=== PATIENT | male | born 1970 | race Two or more races ===

== ENCOUNTER 2018-10-25 06:57 | Day surgery (SDC) | payer OTHER ==
[~2018-10-25] VITALS: Ht 180.3 cm; Wt 113.8 kg
[~2018-10-25 06:57] MED LIST: AMLO10 PO; Anti-Diarrhea2 MG PO; DOCSEN PO; HYDACE5 PO; LOSARTAN POTAS100 MG PO; METO50 PO; METO50ER PO; METR500 PO; MICROZIDE12.5 M1 PO; OLME20 PO; OMEP20ER; OMEPRAZOLE MAGN20 MG PO; ONDA8 PO; OXYC5 PO; Omeprazole20 M1 PO; Roxicodone5 MG PO
--- NOTE | 2018-10-25 07:49 | NUR ---
Ambulatory in Day Surgery Surgical site prepped with 2% Chlorhexidine cloth wipe. History, Chart, Medications and Allergies reviewed before start of procedure.Lungs clear T/O to Auscultation. Patient confirms NPO status and agrees with scheduled surgery. Patient States Post-Procedure ride home has been arranged.
--- NOTE | 2018-10-25 09:25 | NUR ---
10/25/18 0925 Papst,Amyank D HERNIA SAC TISSUE NOT SENT PER .
--- NOTE | 2018-10-25 11:07 | NUR ---
FROM PACU TO STEP WITH THIS RN. VSS RATES PAIN AT 9 WHEN HAVING A SPASM AND A 6 WHEN NOT
--- NOTE | 2018-10-25 12:38 | NUR ---
Discharge instructions reviewed with patient. Patient verbalizes understanding. Copy given to patient to take home. Patient States Post-Procedure ride home has been arranged. Discharged via wheelchair to private car for ride home. PATIENT ENCOURAGED TO TAKE TIME AND ONLY GET DRESSED TO GO HOME IF FEELING READY. HAVE GIVEN ALL PAIN RXS AVAILABLE AT THIS TIME FOR PATIENT. PATIENT GETTING DRESSED AND DISCHARGED AT THIS TIME
== END 2018-10-25 22:45 | disposition home or self-care (01) ==
LOC: ORSCMMR 06:57 → ORD 08:30 → ORSCMMR 08:30
PROVIDERS: Surgery
PROC: 0WUF0JZ Supplement Abdominal Wall with Synthetic Substitute, Open Approach (ICD-10-PCS; principal; 2018-10-25 08:30)
DX: K43.2 Incisional hernia without obstruction or gangrene (principal); I10 Essential (primary) hypertension; K21.9 Gastro-esophageal reflux disease without esophagitis; Z79.899 Other long term (current) drug therapy; Z87.891 Personal history of nicotine dependence
CPT/HCPCS: C1713; C1781; J0330; J0690; J1100; J2250; J2405; J2710; J3010; J7120

== ENCOUNTER 2018-10-27 17:13 | Observation (INO) | payer OTHER ==
[~2018-10-27] VITALS: Ht 180.3 cm; Wt 113.4 kg
[2018-10-27] MEDS ORDERED: OXYC10TA19 PO (17:34)
[2018-10-27] MEDS ORDERED: Aspirin EC81 MG PO (17:34)
[2018-10-27 17:59] LABS: BASOPHILS ABSOLUTE AUTO 0.04 K/mm3 (0.00-0.23); BASOPHILS PERCENT AUTO 0 % (0-2); EOSINOPHILS ABSOLUTE AUTO 0.09 K/mm3 (0.00-0.68); EOSINOPHILS PERCENT AUTO 1 % (0-6); Hematocrit 46.5 % (37.0-53.0); Hemoglobin 15.2 g/dL (13.5-17.5); IMMATURE GRAN ABSOLUTE AUTO 0.05 K/mm3 (0.00-0.10); IMMATURE GRAN PERCENT AUTO 1 % (0-1); LYMPHOCYTES ABSOLUTE AUTO 1.29 K/mm3 (0.84-5.20); LYMPHOCYTES PERCENT AUTO 12 % (21-46); MONOCYTES ABSOLUTE AUTO 0.76 K/mm3 (0.16-1.47); MONOCYTES PERCENT AUTO 7 % (4-13); Mean Corpuscular HGB 27.9 pg (26.0-34.0); Mean Corpuscular HGB Conc 32.7 g/dL (31.5-36.5); Mean Corpuscular Volume 85 fL (80-100); Mean Platelet Volume 10.8 fL (9.1-12.4); NEUTROPHILS ABSOLUTE AUTO 8.88 K/mm3 (1.96-9.15); NEUTROPHILS PERCENT AUTO 80 % (41-73); Platelet Count 285 K/mm3 (150-400); RDW Coefficient Variation 13.5 % (11.7-14.2); RDW Standard Deviation 41.8 fL (35.1-46.3); Red Blood Cell Count 5.45 M/mm3 (4.30-5.90); White Blood Cell Count 11.11 K/mm3 (4.00-11.30)
[2018-10-27 18:31] LABS: Alanine Aminotransfer (ALT/SGP 58 U/L (12-78); Albumin, Blood 4.1 g/dL (3.4-5.0); Alk Phos 103 U/L (50-136); Anion Gap 9 mmol/L (6-16); Aspartate Aminotrans (AST/SGOT 31 U/L (12-37); Bilirubin, Total 1.3 mg/dL (0.1-1.0); Blood Urea Nitrogen 20 mg/dL (8-24); Bun/Creatinine Ratio 21.9 (12.0-20.0); CO2, Blood 28 mmol/L (21-32); Calcium, Blood 10.1 mg/dL (8.5-10.1); Chloride, Blood 100 mmol/L (98-108); Creatinine, Blood 0.91 mg/dL (0.60-1.20); Globulin, Blood 4.2 g/dL (2.2-4.0); Glomerular Filtration Rate >60 (60-); Glucose, Blood 141 mg/dL (70-99); Potassium, Blood 3.7 mmol/L (3.5-5.5); Sodium, Blood 137 mmol/L (136-145); Total Protein, Blood 8.3 g/dL (6.4-8.2)
--- NOTE | 2018-10-27 22:10 | NUR ---
PT TRANSFERRED TO ROOM VIA STRETCHER, TRANSFERRED HIMSELF TO BED, A/0 X 4, PLEASANT/COOPERATIVE, FAMILY IN ROOM, VSS
--- NOTE | 2018-10-28 07:57 | NUR ---
PT HAD AN EPISODE OF VOMITTING THIS MORNING AT APPROX 0630 WITH A TOTAL EMESIS OUTPUT OF 900. APPEARED TO BE BILE; BROWN IN COLOR. WHILE VOMITTING, PT REPORTED FEELING DRG LEAK OUT OF ABD INCISION. UPON ASSESSMENT, GAUZE COVERING INCISION WAS SOAKED. SOME DRG NOTED ON ABD BINDER, FLOOR AND PANTS. DRG APPEARED TO BE SEROSANGUINOUS. PT REPORTS NOT FEELING NAUSEAS ANYMORE. WILL CONSIDER INSERTING NG TUBE.
--- NOTE | 2018-10-28 11:36 | NUR ---
ROUNDING: DR LILLY IN TO SEE PATIENT. PT HAD SMALL UNFORMED BM. OK TO START CLEAR LIQUIDS. ADVISED TO TAKE IN LIQUIDS SLOWLY. PT DENIES PAIN OR NAUSEA AT THIS TIME. WILL MONITOR DIET TOLERANCE.
--- NOTE | 2018-10-28 12:55 | NUR ---
PT HAD SMALL LIQUID BM. PT DENIES PAIN OR BLEEDING WITH BM. SITTING IN BED, FAMILY AT BEDSIDE.
--- NOTE | 2018-10-28 16:23 | NUR ---
DISCHARGE: DC TO HOME AT THIS TIME. PAIN WELL CONTROLLED WITH PO PAIN MEDS. PT HAS HAD 3 SMALL BM'S TODAY. TOLERATING ACTIVITY. IV DC'D WNL. VERBAL UNDERSTANDING OF INSTRUCTIONS AND FOLLOW UP. PT LEFT AMBULATORY TO CAR WITH BELONGINGS.
== END 2018-10-28 16:23 | disposition home or self-care (01) ==
LOC: ER 17:13 → SURS 17:14
PROVIDERS: Physician Assistant; ADMIT Surgery
DX: K56.7 Ileus, unspecified (principal); R11.2 Nausea with vomiting, unspecified; Z79.82 Long term (current) use of aspirin; Z79.899 Other long term (current) drug therapy; Z87.891 Personal history of nicotine dependence; Z98.890 Other specified postprocedural states
CPT/HCPCS: 36415; 74176; 80053; 85025; 96361; 96374; 96375; 96376; 99285-25; G0378; J1170; J2405; J7120

== ENCOUNTER 2019-01-07 14:21 | Day surgery (SDC) | payer OTHER ==
[~2019-01-07 14:21] MED LIST changes: +Aspirin EC81 MG PO; +OXYC10TA19 PO
== END 2019-01-07 14:55 | disposition home or self-care (01) ==
LOC: ATC 14:21
DX: C18.2 Malignant neoplasm of ascending colon (principal); R51 Headache; I10 Essential (primary) hypertension; Z79.899 Other long term (current) drug therapy; Z79.82 Long term (current) use of aspirin
CPT/HCPCS: J1642

== ENCOUNTER 2019-01-21 00:08 | Day surgery (SDC) | payer OTHER | END 2019-01-21 16:12 | disposition home or self-care (01) | LOC: ATC 00:08 | DX: C18.2 Malignant neoplasm of ascending colon (principal); I10 Essential (primary) hypertension | CPT/HCPCS: J1642 ==

== ENCOUNTER 2019-03-15 09:25 | Day surgery (SDC) | payer OTHER | END 2019-03-15 13:50 | disposition home or self-care (01) | LOC: ATC 09:25 | DX: C18.2 Malignant neoplasm of ascending colon (principal); Z79.899 Other long term (current) drug therapy; Z79.82 Long term (current) use of aspirin; Z87.891 Personal history of nicotine dependence | CPT/HCPCS: 96523; J1642 ==

== ENCOUNTER 2019-04-06 00:02 | Day surgery (SDC) | payer OTHER | END 2019-04-06 10:31 | disposition home or self-care (01) | LOC: ATC 00:02 | DX: Z45.1 Encounter for adjustment and management of infusion pump (principal); C18.2 Malignant neoplasm of ascending colon; I10 Essential (primary) hypertension; G62.9 Polyneuropathy, unspecified; G89.3 Neoplasm related pain (acute) (chronic); Q23.1 Congenital insufficiency of aortic valve; Z79.899 Other long term (current) drug therapy; Z79.82 Long term (current) use of aspirin; Z79.891 Long term (current) use of opiate analgesic; Z90.49 Acquired absence of other specified parts of digestive tract; Z87.891 Personal history of nicotine dependence | CPT/HCPCS: 96523; J1642 ==

== ENCOUNTER 2019-05-03 00:10 | Day surgery (SDC) | payer OTHER | END 2019-05-03 13:53 | disposition home or self-care (01) | LOC: ATC 00:10 | DX: C18.2 Malignant neoplasm of ascending colon (principal); R79.89 Other specified abnormal findings of blood chemistry; K21.9 Gastro-esophageal reflux disease without esophagitis | CPT/HCPCS: 96523; J1642 ==

== ENCOUNTER 2019-06-09 00:19 | Day surgery (SDC) | payer OTHER | END 2019-06-09 13:53 | disposition home or self-care (01) | LOC: ATC 00:19 | DX: C18.2 Malignant neoplasm of ascending colon (principal); I10 Essential (primary) hypertension; Z87.891 Personal history of nicotine dependence | CPT/HCPCS: 96523; J1642 ==

== ENCOUNTER → 2019-07-12 | Outpatient (CLI) | payer OTHER | END | disposition home or self-care (01) | LOC: LAB SHORT 08:00 → LAB SRC 08:00 → LAB SHORT 07-13 14:05 | DX: C18.9 Malignant neoplasm of colon, unspecified (principal) | CPT/HCPCS: 87493 ==

== ENCOUNTER 2019-07-29 19:16 | Emergency (ER) | payer OTHER ==
[~2019-07-29] VITALS: Ht 180.3 cm; Wt 114.3 kg
[2019-07-29 19:57] LABS: BASOPHILS ABSOLUTE AUTO 0.03 K/mm3 (0.00-0.23); BASOPHILS PERCENT AUTO 1 % (0-2); EOSINOPHILS ABSOLUTE AUTO 0.11 K/mm3 (0.00-0.68); EOSINOPHILS PERCENT AUTO 3 % (0-6); Hematocrit 43.2 % (37.0-53.0); Hemoglobin 13.6 g/dL (13.5-17.5); IMMATURE GRAN ABSOLUTE AUTO 0.01 K/mm3 (0.00-0.10); IMMATURE GRAN PERCENT AUTO 0 % (0-1); LYMPHOCYTES ABSOLUTE AUTO 1.99 K/mm3 (0.84-5.20); LYMPHOCYTES PERCENT AUTO 46 % (21-46); MONOCYTES PERCENT AUTO 7 % (4-13); Mean Corpuscular HGB 28.2 pg (26.0-34.0); Mean Corpuscular HGB Conc 31.5 g/dL (31.5-36.5); Mean Corpuscular Volume 90 fL (80-100); NEUTROPHILS ABSOLUTE AUTO 1.86 K/mm3 (1.96-9.15); NEUTROPHILS PERCENT AUTO 43 % (41-73); Platelet Count 200 K/mm3 (150-400); RDW Coefficient Variation 15.9 % (11.7-14.2); RDW Standard Deviation 51.2 fL (35.1-46.3); Red Blood Cell Count 4.82 M/mm3 (4.30-5.90)
[2019-07-29 20:17] LABS: Alanine Aminotransfer (ALT/SGP 55 U/L (12-78); Albumin, Blood 3.9 g/dL (3.4-5.0); Albumin/Globulin Ratio 1.1 (0.8-1.8); Alk Phos 112 U/L (50-136); Anion Gap 6 mmol/L (6-16); Aspartate Aminotrans (AST/SGOT 31 U/L (12-37); Bilirubin, Total 0.2 mg/dL (0.1-1.0); Blood Urea Nitrogen 17 mg/dL (8-24); Bun/Creatinine Ratio 17.8 (12.0-20.0); CO2, Blood 23 mmol/L (21-32); Calcium, Blood 9.5 mg/dL (8.5-10.1); Chloride, Blood 111 mmol/L (98-108); Creatinine, Blood 0.96 mg/dL (0.60-1.20); Globulin, Blood 3.5 g/dL (2.2-4.0); Glomerular Filtration Rate >60 (60-); Glucose, Blood 121 mg/dL (70-99); Potassium, Blood 3.7 mmol/L (3.5-5.5); Sodium, Blood 140 mmol/L (136-145); Total Protein, Blood 7.4 g/dL (6.4-8.2); Troponin I <0.015 ng/mL (0.000-0.040)
== END 2019-07-29 22:41 | disposition home or self-care (01) ==
LOC: ER 19:16
PROVIDERS: Emergency Medicine
DX: R07.89 Other chest pain (principal); F17.210 Nicotine dependence, cigarettes, uncomplicated; Z85.038 Personal history of other malignant neoplasm of large intestine; Z79.899 Other long term (current) drug therapy; Z79.82 Long term (current) use of aspirin
CPT/HCPCS: 36415; 71046; 80053; 84484; 85025; 93005; 93010; 99285-25

== ENCOUNTER → 2019-10-05 | Outpatient (CLI) | payer OTHER | END | disposition home or self-care (01) | LOC: LAB 11:50 → LAB SHORT 11:50 | DX: C18.9 Malignant neoplasm of colon, unspecified (principal) | CPT/HCPCS: 87493 ==

== ENCOUNTER 2019-10-12 13:22 | Emergency (ER) | payer OTHER ==
[~2019-10-12] VITALS: Ht 180.3 cm; Wt 113.4 kg
[2019-10-12 14:07] LABS: BASOPHILS ABSOLUTE AUTO 0.03 K/mm3 (0.00-0.23); BASOPHILS PERCENT AUTO 1 % (0-2); EOSINOPHILS ABSOLUTE AUTO 0.13 K/mm3 (0.00-0.68); EOSINOPHILS PERCENT AUTO 4 % (0-6); Hematocrit 42.8 % (37.0-53.0); Hemoglobin 13.7 g/dL (13.5-17.5); IMMATURE GRAN ABSOLUTE AUTO 0.01 K/mm3 (0.00-0.10); IMMATURE GRAN PERCENT AUTO 0 % (0-1); LYMPHOCYTES ABSOLUTE AUTO 1.46 K/mm3 (0.84-5.20); LYMPHOCYTES PERCENT AUTO 44 % (21-46); MONOCYTES ABSOLUTE AUTO 0.25 K/mm3 (0.16-1.47); MONOCYTES PERCENT AUTO 8 % (4-13); Mean Corpuscular HGB 29.2 pg (26.0-34.0); Mean Corpuscular Volume 91 fL (80-100); Mean Platelet Volume 10.6 fL (9.1-12.4); NEUTROPHILS ABSOLUTE AUTO 1.46 K/mm3 (1.96-9.15); NEUTROPHILS PERCENT AUTO 44 % (41-73); Platelet Count 183 K/mm3 (150-400); RDW Coefficient Variation 16.3 % (11.7-14.2); RDW Standard Deviation 54.9 fL (35.1-46.3); Red Blood Cell Count 4.69 M/mm3 (4.30-5.90); White Blood Cell Count 3.34 K/mm3 (4.00-11.30)
[2019-10-12 14:35] LABS: Alanine Aminotransfer (ALT/SGP 68 U/L (12-78); Albumin, Blood 3.6 g/dL (3.4-5.0); Alk Phos 83 U/L (50-136); Anion Gap 5 mmol/L (6-16); Aspartate Aminotrans (AST/SGOT 42 U/L (12-37); Bilirubin, Total 0.2 mg/dL (0.1-1.0); Blood Urea Nitrogen 10 mg/dL (8-24); Bun/Creatinine Ratio 10.7 (12.0-20.0); CO2, Blood 24 mmol/L (21-32); Calcium, Blood 9.7 mg/dL (8.5-10.1); Chloride, Blood 113 mmol/L (98-108); Creatinine, Blood 0.94 mg/dL (0.60-1.20); Globulin, Blood 3.6 g/dL (2.2-4.0); Glomerular Filtration Rate >60 (60-); Glucose, Blood 146 mg/dL (70-99); Potassium, Blood 3.9 mmol/L (3.5-5.5); Sodium, Blood 142 mmol/L (136-145); Total Protein, Blood 7.2 g/dL (6.4-8.2)
== END 2019-10-12 15:43 | disposition home or self-care (01) ==
LOC: ER 13:22
PROVIDERS: Emergency Medicine
DX: R55 Syncope and collapse (principal); R06.00 Dyspnea, unspecified; F17.210 Nicotine dependence, cigarettes, uncomplicated
CPT/HCPCS: 36415; 71045; 80053; 83880; 84484; 85025; 93005; 93010; 99284-25

== ENCOUNTER 2021-09-03 05:47 | Day surgery (SDC) | payer OTHER ==
[~2021-09-03] VITALS: Ht 180.3 cm; Wt 113.7 kg
[~2021-09-03 05:47] MED LIST changes: +CATAPRES0.1 MG PO; +COREG12.5 MG PO
--- NOTE | 2021-09-03 07:16 | NUR ---
Ambulatory in Day Surgery. History, Chart, Medications and Allergies reviewed before start of procedure. Lungs clear T/O to Auscultation. Patient confirms NPO status and agrees with scheduled surgery. Pre-Op teaching done. Pt verbalizes understanding. Patient States Post-Procedure ride home has been arranged.
--- NOTE | 2021-09-03 09:04 | NUR ---
RECIEVED REPORT FROM HEATHER DORMAN RN. PT ALERT AND ORIENTED UPON ARRIVAL TO STEPDOWN, REQUESTING PO FLUIDS AND FOOD. ABLE TO REPOSITION SELF IN BED. TWO INCISION SITES COVERED WITH GUAZE AND WINDOW, NO REDNESS, SWELLING, OR DRAINAGE NOTED ON EITHER SITES. PATIENT REPORTS A 4/10 ACHING PAIN AT INCISION SITE.
--- NOTE | 2021-09-03 09:27 | NUR ---
PT TOLERATED PO FLUID AND FOOD, IS REQUESTING TO GO HOME. SISTER AT BEDSIDE VISITING AND PREPARING TO GO GET TRANSPORTATION HOME.
--- NOTE | 2021-09-03 09:37 | NUR ---
Patient up to Ambulate independently. Gait steady. Discharge instructions reviewed with patient. Patient verbalizes understanding. Copy given to patient to take home. Dressing to procedure site clean, dry, intact with no visible drainage, swelling, erythema or bruising noted. Patient States Post-Procedure ride home has been arranged. Discharged via wheelchair to private car for ride home. ALL BELONGINGS THAT THE PATIENT BROUGHT WITH THEM WERE RETURNED TO THEM UPON DISCHARGE.
== END 2021-09-03 23:06 | disposition home or self-care (01) ==
LOC: ORSCMMR 05:47 → ORD 07:30 → ORSCMMR 07:30
PROVIDERS: Surgery
PROC: 05HM33Z Insertion of Infusion Device into Right Internal Jugular Vein, Percutaneous Approach (ICD-10-PCS; principal; 2021-09-03 07:30)
PROC: B543ZZA Ultrasonography of Right Jugular Veins, Guidance (ICD-10-PCS; principal; 2021-09-03 07:30)
DX: C18.3 Malignant neoplasm of hepatic flexure (principal); C78.7 Secondary malignant neoplasm of liver and intrahepatic bile duct; C77.9 Secondary and unspecified malignant neoplasm of lymph node, unspecified; I10 Essential (primary) hypertension; G47.33 Obstructive sleep apnea (adult) (pediatric); Z87.891 Personal history of nicotine dependence; K21.9 Gastro-esophageal reflux disease without esophagitis; F41.9 Anxiety disorder, unspecified; E66.9 Obesity, unspecified; Z68.35 Body mass index [BMI] 35.0-35.9, adult; Z79.899 Other long term (current) drug therapy
CPT/HCPCS: 77001; A9270; C1788; J0690; J1100; J1642; J2250; J2405; J2704; J3010; J7120

== ENCOUNTER → 2021-09-24 | Outpatient (CLI) | payer OTHER ==
[2021-09-24 20:21] LABS: C DIFFICILE DNA NEGATIVE (Negative)
== END | disposition home or self-care (01) ==
LOC: LAB SHORT 08:30 → LAB FUT 09-22 11:15
PROVIDERS: Registered Nurse Oncology
DX: C18.9 Malignant neoplasm of colon, unspecified (principal); A04.72 Enterocolitis due to Clostridium difficile, not specified as recurrent
CPT/HCPCS: 87493

== ENCOUNTER 2021-10-05 19:00 | Emergency (ER) | payer OTHER ==
[~2021-10-05] VITALS: Ht 180.3 cm; Wt 108.9 kg
[2021-10-05 19:33] LABS: Hematocrit 47.7 % (37.0-53.0); Hemoglobin 16.1 g/dL (13.5-17.5); Mean Corpuscular HGB 28.5 pg (26.0-34.0); Mean Corpuscular HGB Conc 33.8 g/dL (31.5-36.5); Mean Corpuscular Volume 85 fL (80-100); Mean Platelet Volume 10.2 fL (9.1-12.4); Platelet Count 400 K/mm3 (150-400); RDW Coefficient Variation 13.9 % (11.7-14.2); RDW Standard Deviation 42.5 fL (35.1-46.3); Red Blood Cell Count 5.64 M/mm3 (4.30-5.90); White Blood Cell Count 5.39 K/mm3 (4.00-11.30)
[2021-10-05 19:47] LABS: Source, Urine Clean Catch
[2021-10-05 19:51] LABS: Alanine Aminotransfer (ALT/SGP 37 U/L (12-78); Albumin, Blood 3.6 g/dL (3.4-5.0); Albumin/Globulin Ratio 0.8 (0.8-1.8); Alk Phos 169 U/L (50-136); Anion Gap 8 mmol/L (6-16); Aspartate Aminotrans (AST/SGOT 21 U/L (12-37); Bilirubin, Total 0.7 mg/dL (0.1-1.0); Blood Urea Nitrogen 21 mg/dL (8-24); Bun/Creatinine Ratio 19.6 (12.0-20.0); CO2, Blood 22 mmol/L (21-32); Calcium, Blood 10.5 mg/dL (8.5-10.1); Chloride, Blood 100 mmol/L (98-108); Creatinine, Blood 1.07 mg/dL (0.60-1.20); Globulin, Blood 4.5 g/dL (2.2-4.0); Glomerular Filtration Rate >60 (60-); Glucose, Blood 134 mg/dL (70-99); Potassium, Blood 4.1 mmol/L (3.5-5.5); Sodium, Blood 130 mmol/L (136-145); Total Protein, Blood 8.1 g/dL (6.4-8.2)
[2021-10-05 19:53] LABS: Appearance, Urine Hazy (Clear); Blood, Urine 2+ (Neg); Color, Urine Yellow (P-Yellow); Glucose Qualitative, Urine Neg (Neg); Ketones, Urine 1+ (Neg); Leukocyte Esterase, Urine Neg (Neg); Nitrite, Urine Neg (Neg); Protein, Urine 2+ (Neg); Urobilinogen, Urine NORM (Normal)
[2021-10-05 20:04] LABS: BAND PERCENT MAN 27 % (0-8); BASOPHILS PERCENT MAN 0 % (0-2); EOSINOPHILS PERCENT MAN 2 % (0-6); LYMPHOCYTES ABSOLUTE MAN 1.67 K/mm3 (0.84-5.20); LYMPHOCYTES PERCENT MAN 31 % (21-46); MONOCYTES ABSOLUTE MAN 0.43 K/mm3 (0.16-1.47); MONOCYTES PERCENT MAN 8 % (4-13); NEUTROPHILS ABSOLUTE MAN 3.18 K/mm3 (1.96-9.15); SEG NEUTROPHILS PERCENT MAN 32 % (41-73); TOTAL CELLS COUNTED 100
[2021-10-05 20:31] LABS: Bilirubin, Urine 1+ (Neg)
[2021-10-05 20:33] LABS: Amorphous Light (0-Heavy); Bacteria Few /hpf; Squamous Epithelial Cells Rare /hpf (Few); White Blood Cells, Urine 0-2 /hpf (0-5)
[2021-10-05 20:34] LABS: Mucus Heavy (0-Heavy)
[2021-10-05] MEDS ORDERED: DICY20 PO (21:00)
== END 2021-10-05 21:55 | disposition home or self-care (01) ==
LOC: ER 19:00
PROVIDERS: Physician Assistant
DX: R11.2 Nausea with vomiting, unspecified (principal); T45.1X5A Adverse effect of antineoplastic and immunosuppressive drugs, initial encounter; F17.210 Nicotine dependence, cigarettes, uncomplicated; Z79.899 Other long term (current) drug therapy; Z79.82 Long term (current) use of aspirin
CPT/HCPCS: 36415; 80053; 81001; 83690; 85025; 87086; 96372-59; 96374; 99284-25; J0500; J2405; J7030

== ENCOUNTER 2022-03-02 08:12 | Inpatient (IN) | payer OTHER ==
[~2022-03-02] VITALS: Ht 180.3 cm; Wt 104.2 kg
[~2022-03-02 08:12] MED LIST changes: +CARV25 PO; -COREG12.5 MG PO; +DICY20 PO
[2022-03-02 09:27] LABS: BASOPHILS ABSOLUTE AUTO 0.02 K/mm3 (0.00-0.23); BASOPHILS PERCENT AUTO 0 % (0-2); EOSINOPHILS PERCENT AUTO 0 % (0-6); Hematocrit 38.2 % (37.0-53.0); Hemoglobin 12.5 g/dL (13.5-17.5); IMMATURE GRAN ABSOLUTE AUTO 0.06 K/mm3 (0.00-0.10); IMMATURE GRAN PERCENT AUTO 1 % (0-1); LYMPHOCYTES ABSOLUTE AUTO 0.58 K/mm3 (0.84-5.20); LYMPHOCYTES PERCENT AUTO 5 % (21-46); MONOCYTES ABSOLUTE AUTO 0.56 K/mm3 (0.16-1.47); MONOCYTES PERCENT AUTO 5 % (4-13); Mean Corpuscular HGB 29.5 pg (26.0-34.0); Mean Corpuscular HGB Conc 32.7 g/dL (31.5-36.5); Mean Corpuscular Volume 90 fL (80-100); Mean Platelet Volume 11.4 fL (9.1-12.4); NEUTROPHILS PERCENT AUTO 90 % (41-73); Platelet Count 210 K/mm3 (150-400); RDW Coefficient Variation 15.4 % (11.7-14.2); RDW Standard Deviation 50.8 fL (35.1-46.3); Red Blood Cell Count 4.24 M/mm3 (4.30-5.90); White Blood Cell Count 11.92 K/mm3 (4.00-11.30)
[2022-03-02 09:44] LABS: International Normalized Ratio 1.25; Prothrombin Time Results 12.9 Sec (9.7-11.5)
[2022-03-02 09:49] LABS: Source, Urine Straight Cath
[2022-03-02 09:51] LABS: Albumin, Blood 2.9 g/dL (3.4-5.0); Albumin/Globulin Ratio 0.7 (0.8-1.8); Bilirubin, Direct 1.2 mg/dL (0.0-0.3); Bilirubin, Total 2.2 mg/dL (0.1-1.0); Bun/Creatinine Ratio 21.4 (12.0-20.0); C-REACTIVE PROTEIN, EXT RANGE 13.1 mg/dL (0.000-0.300); Calcium, Blood 10.1 mg/dL (8.5-10.1); Creatinine, Blood 0.75 mg/dL (0.60-1.20); Globulin, Blood 4.3 g/dL (2.2-4.0); Magnesium, Blood 1.4 mg/dL (1.6-2.4); Phosphorus, Blood 2.6 mg/dL (2.5-4.9); Potassium, Blood 3.7 mmol/L (3.5-5.5); Total Protein, Blood 7.2 g/dL (6.4-8.2)
[2022-03-02 10:04] LABS: Influenza A, PCR NEGATIVE (NEGATIVE); Influenza B, PCR NEGATIVE (NEGATIVE); Resp Syncytial Virus, PCR NEGATIVE (NEGATIVE); SARS-Cov-2 (COVID-19) PCR, MMC NEGATIVE (NEGATIVE)
[2022-03-02 10:09] LABS: Appearance, Urine Clear (Clear); Blood, Urine 1+ (Neg); Color, Urine Yellow (P-Yellow); Glucose Qualitative, Urine Neg (Neg); Ketones, Urine 1+ (Neg); Leukocyte Esterase, Urine 1+ (Neg); Nitrite, Urine Neg (Neg); Protein, Urine 2+ (Neg); Urobilinogen, Urine 1+ (Normal)
[2022-03-02 10:45] LABS: Bilirubin, Urine 2+ (Neg)
[2022-03-02] MEDS ORDERED: LOSA50 PO (10:46)
[2022-03-02 10:47] LABS: Bacteria Many /hpf; Red Blood Cells, Urine 0-2 /hpf (0-2); Squamous Epithelial Cells Few /hpf (Few); White Blood Cells, Urine 0-2 /hpf (0-5)
[2022-03-02] MEDS ORDERED: IMODIUM A-D2 M1 PO (10:47)
[2022-03-02] MEDS ORDERED: METO10 PO (10:48)
[2022-03-02] MEDS ORDERED: Zofran4 MG PO (17:16)
[2022-03-02] MEDS ORDERED: IBUP600 PO (17:16)
--- NOTE | 2022-03-03 03:51 | NUR ---
SHIT SUMMARY PT A/OX4 AND INDEPENDENT IN ROOM. LOW GRADE FEVER HOWEVER RESOLVED WITH TYLENOL. IVF PER ORDER. URINE VERY DARK HOWEVER PT REPORTS THIS HAPPENED AFTER HAVING BILIARY STENT PLACED 02/16 AND WAS TOLD THAT URINE WOULD BE DARK AND PROGRESSIVELY CLEAR. STATES AT THIS TIME URINE IS PARQUET FLOOR LAYER'S HELPER COLOR THAN BEFORE. MEDIPORT ACCESSED IN ER WITH BLOOD RETURN NOTED. PT WITH NO CONCERNS THIS SHIFT.
[2022-03-03 05:51] LABS: BASOPHILS ABSOLUTE AUTO 0.01 K/mm3 (0.00-0.23); BASOPHILS PERCENT AUTO 0 % (0-2); EOSINOPHILS ABSOLUTE AUTO 0.04 K/mm3 (0.00-0.68); EOSINOPHILS PERCENT AUTO 1 % (0-6); Hematocrit 32.5 % (37.0-53.0); Hemoglobin 10.6 g/dL (13.5-17.5); IMMATURE GRAN ABSOLUTE AUTO 0.02 K/mm3 (0.00-0.10); IMMATURE GRAN PERCENT AUTO 0 % (0-1); LYMPHOCYTES ABSOLUTE AUTO 0.42 K/mm3 (0.84-5.20); LYMPHOCYTES PERCENT AUTO 8 % (21-46); MONOCYTES PERCENT AUTO 8 % (4-13); Mean Corpuscular HGB 29.8 pg (26.0-34.0); Mean Corpuscular HGB Conc 32.6 g/dL (31.5-36.5); Mean Corpuscular Volume 91 fL (80-100); NEUTROPHILS ABSOLUTE AUTO 4.15 K/mm3 (1.96-9.15); NEUTROPHILS PERCENT AUTO 82 % (41-73); Platelet Count 136 K/mm3 (150-400); RDW Coefficient Variation 15.2 % (11.7-14.2); Red Blood Cell Count 3.56 M/mm3 (4.30-5.90); White Blood Cell Count 5.04 K/mm3 (4.00-11.30)
[2022-03-03 06:10] LABS: Albumin, Blood 2.3 g/dL (3.4-5.0); Albumin/Globulin Ratio 0.6 (0.8-1.8); Bilirubin, Total 1.9 mg/dL (0.1-1.0); Bun/Creatinine Ratio 25.1 (12.0-20.0); Creatinine, Blood 0.68 mg/dL (0.60-1.20); Magnesium, Blood 1.9 mg/dL (1.6-2.4); Potassium, Blood 3.9 mmol/L (3.5-5.5); Total Protein, Blood 6.3 g/dL (6.4-8.2)
--- NOTE | 2022-03-03 18:17 | NUR ---
PATIENT A/OX4, UP INDEPENDENTLY IN ROOM AND HALLS. VSS, ON RA. AFEBRILE THIS SHIFT. MEDIPORT ACCESSED, NS INFUSING. POSITIVE BLOOD CX, ZOSYN ORDERED TO TREAT. PATIENT HAS CHRONIC DIARRHEA AND IMMODIUM GIVEN X1 THIS SHIFT. TOLERATING DIET. TRAMADOL GIVEN X1 TO TREAT 4/10 RUQ ABDOMINAL PAIN. SKIN INTACT. PATIENT IS VERY PLEASANT AND COOPERATIVE WITH CARE. ABLE TO MAKE NEEDS KNOWN.
[2022-03-04 05:51] LABS: BASOPHILS ABSOLUTE AUTO 0.02 K/mm3 (0.00-0.23); BASOPHILS PERCENT AUTO 0 % (0-2); EOSINOPHILS ABSOLUTE AUTO 0.14 K/mm3 (0.00-0.68); EOSINOPHILS PERCENT AUTO 3 % (0-6); Hemoglobin 10.1 g/dL (13.5-17.5); IMMATURE GRAN ABSOLUTE AUTO 0.02 K/mm3 (0.00-0.10); IMMATURE GRAN PERCENT AUTO 0 % (0-1); LYMPHOCYTES ABSOLUTE AUTO 0.74 K/mm3 (0.84-5.20); LYMPHOCYTES PERCENT AUTO 17 % (21-46); MONOCYTES ABSOLUTE AUTO 0.49 K/mm3 (0.16-1.47); MONOCYTES PERCENT AUTO 11 % (4-13); Mean Corpuscular HGB 29.5 pg (26.0-34.0); Mean Corpuscular HGB Conc 32.6 g/dL (31.5-36.5); Mean Corpuscular Volume 91 fL (80-100); Mean Platelet Volume 11.4 fL (9.1-12.4); NEUTROPHILS ABSOLUTE AUTO 3.07 K/mm3 (1.96-9.15); NEUTROPHILS PERCENT AUTO 69 % (41-73); Platelet Count 126 K/mm3 (150-400); RDW Coefficient Variation 15.1 % (11.7-14.2); RDW Standard Deviation 50.8 fL (35.1-46.3); Red Blood Cell Count 3.42 M/mm3 (4.30-5.90); White Blood Cell Count 4.48 K/mm3 (4.00-11.30)
[2022-03-04 06:04] LABS: Albumin, Blood 2.1 g/dL (3.4-5.0); Albumin/Globulin Ratio 0.6 (0.8-1.8); Bilirubin, Total 1.1 mg/dL (0.1-1.0); Bun/Creatinine Ratio 20.5 (12.0-20.0); Creatinine, Blood 0.64 mg/dL (0.60-1.20); Globulin, Blood 3.7 g/dL (2.2-4.0); Potassium, Blood 3.2 mmol/L (3.5-5.5); Total Protein, Blood 5.8 g/dL (6.4-8.2)
--- NOTE | 2022-03-04 06:38 | NUR ---
SHIFT SUMMARY - NO ACUTE CHANGES THROUGHOUT THIS SHIFT. PT REPORTS HE DIDN'T SLEEP VERY WELL LAST NOC, ASKED PT IF HE TAKES ANYTHING FOR SLEEP AT HOME. PT REPORTS HE OCCASIONALLY TAKES MELATONIN. MENTIONED RN COULD GET MELATONIN TONIGHT - PT REPORTS HE IS ANTICIPATING GOING HOME TODAY. PT MEDICATED X1 WITH ULTRAM - SEE EMAR. URINE IS TEA COLORED. FLUIDS AT BEDSIDE. BED IN LOW POSITION. PT HAS BEEN UP INDEPENDENTLY IN THE ROOM. WILL CONTINUE TO MONITOR UNTIL AM SHIFT CHANGE.
[2022-03-04] MEDS ORDERED: AMOCLA875 PO (13:01)
--- NOTE | 2022-03-04 15:04 | NUR ---
DISCHARGE INSTRUCTIONS REVIEWED WITH PT AND S.O. IN TO SEE PT ON TEST RESULTS PRIOR TO DISCHARGE. [facility] PT TO FOLLOW UP WITH PCP IN 1 WEEK. IV DC'D INTACT. MEDIPORT DEACCESSED AFTER HEPARIN. PT DC'D HOME WITH S.O. AT 1507 WITH S.O.
== END 2022-03-04 15:07 | disposition home or self-care (01) | DRG 919 ==
LOC: ER 08:12 → MEDS 16:20
PROVIDERS: Family Medicine; Nurse Practitioner Acute Care; Student in an Organized Health Care Education/Training Program; ADMIT Internal Medicine
DX: T85.79XA Infection and inflammatory reaction due to other internal prosthetic devices, implants and grafts, initial encounter (principal); A41.9 Sepsis, unspecified organism; C18.9 Malignant neoplasm of colon, unspecified; C78.7 Secondary malignant neoplasm of liver and intrahepatic bile duct; K83.09 Other cholangitis; K21.9 Gastro-esophageal reflux disease without esophagitis; I10 Essential (primary) hypertension; Z90.49 Acquired absence of other specified parts of digestive tract; Z98.890 Other specified postprocedural states; Z79.82 Long term (current) use of aspirin; Z79.899 Other long term (current) drug therapy; F17.210 Nicotine dependence, cigarettes, uncomplicated; E83.42 Hypomagnesemia; Z20.822 Contact with and (suspected) exposure to COVID-19; K81.9 Cholecystitis, unspecified
CPT/HCPCS: 0241U; 36415; 71045; 74177; 80053; 81001; 82248; 83605; 83735; 84100; 84145; 85025; 85610; 85651; 85730; 86140; 87040; 87077; 87086; 87186; 93005; 93010; 96365; 96366; 96367; 96368; 96375; 99285-25; A9270; J0692; J1200; J1642; J1650; J1885; J2270; J2543; J2765; J3370; J3475; J7030; J7060; J7120; Q9967

== ENCOUNTER 2022-03-25 18:45 | Inpatient (IN) | payer OTHER ==
[~2022-03-25] VITALS: Ht 180.3 cm; Wt 98.7 kg
[~2022-03-25 18:45] MED LIST changes: +AMOCLA875 PO; +IBUP600 PO; +IMODIUM A-D2 M1 PO; +LOSA50 PO; +METO10 PO; +Zofran4 MG PO
[2022-03-25 19:53] LABS: BASOPHILS ABSOLUTE AUTO 0.02 K/mm3 (0.00-0.23); BASOPHILS PERCENT AUTO 0 % (0-2); EOSINOPHILS PERCENT AUTO 1 % (0-6); Hematocrit 37.7 % (37.0-53.0); Hemoglobin 11.8 g/dL (13.5-17.5); IMMATURE GRAN ABSOLUTE AUTO 0.04 K/mm3 (0.00-0.10); IMMATURE GRAN PERCENT AUTO 1 % (0-1); LYMPHOCYTES ABSOLUTE AUTO 1.04 K/mm3 (0.84-5.20); LYMPHOCYTES PERCENT AUTO 12 % (21-46); MONOCYTES ABSOLUTE AUTO 0.66 K/mm3 (0.16-1.47); MONOCYTES PERCENT AUTO 8 % (4-13); Mean Corpuscular HGB 27.9 pg (26.0-34.0); Mean Corpuscular HGB Conc 31.3 g/dL (31.5-36.5); Mean Corpuscular Volume 89 fL (80-100); Mean Platelet Volume 11.1 fL (9.1-12.4); NEUTROPHILS ABSOLUTE AUTO 6.82 K/mm3 (1.96-9.15); NEUTROPHILS PERCENT AUTO 79 % (41-73); Platelet Count 288 K/mm3 (150-400); RDW Coefficient Variation 14.2 % (11.7-14.2); RDW Standard Deviation 46.2 fL (35.1-46.3); Red Blood Cell Count 4.23 M/mm3 (4.30-5.90); White Blood Cell Count 8.68 K/mm3 (4.00-11.30)
[2022-03-25 20:06] LABS: Albumin, Blood 2.9 g/dL (3.4-5.0); Albumin/Globulin Ratio 0.6 (0.8-1.8); Bilirubin, Total 1.3 mg/dL (0.1-1.0); Bun/Creatinine Ratio 18.3 (12.0-20.0); Calcium, Blood 10.4 mg/dL (8.5-10.1); Creatinine, Blood 0.71 mg/dL (0.60-1.20); Globulin, Blood 4.9 g/dL (2.2-4.0); Potassium, Blood 3.8 mmol/L (3.5-5.5); Total Protein, Blood 7.8 g/dL (6.4-8.2)
[2022-03-25 21:31] LABS: Influenza A, PCR NEGATIVE (NEGATIVE); Influenza B, PCR NEGATIVE (NEGATIVE); Resp Syncytial Virus, PCR NEGATIVE (NEGATIVE); SARS-Cov-2 (COVID-19) PCR, MMC NEGATIVE (NEGATIVE)
--- NOTE | 2022-03-26 02:34 | NUR ---
[facility] THIS RN, BELLA Jones, AND PADMAJA Jones RN'S ALL ATEMPTED TO ACCESS [facility] TO OBTAIN A SET OF CULTURES FROM [facility]. ALL UNSUCCESFUL AND PAINFUL TO PATIENT. DR COOK NOTIFIED, ORDER TO OBTAIN BLOOD CULTURES FROM PORT DC'D. BLOOD CULTURES FROM [facility] OBTAINED IN ER.
--- NOTE | 2022-03-26 02:40 | NUR ---
ASSUMED CARE OF PATIENT AT APPROXIMATELY 0125 FROM JUDY Dawkins, PCU CLERICAL ORDER FILLER WHILE THIS RN WAS ON LUNCH; PATIENT NEW ER ADMIT MEDICAL OBS NO TELE. PATIENT ALERT AND ORIENTED X4. PARTNER CHICHI BEDSIDE DURING ADMISSION. PATIENT DENIES PAIN, NUMBNESS, TINGLING, DIZZINESS, AND NAUSEA. PATIENT IN ISOLATION TO R/O C-DIFF; PATIENT AWARE STAFF NEEDS SAMPLE. OXYGEN SATURATION ABOVE 90% ON ROOM AIR. PIV INFUSING IVF PER ORDER. ORDER FROM DR. EVANS RECIEVED BY CLERICAL ORDER FILLER JUDY Galvez TO COLLECT AT LEAST ONE BLOOD CULTURE FROM PATIENT MEDIPORT. PCU CLERICAL ORDER FILLER, ICU CLERICAL ORDER FILLER, AND ANOTHER RN ATTEMPTED TO ACCESS MEDIPORT BUT THE MEDIPORT WOULD NOT DRAW BACK; UNABLE TO DRAW CULTURE; DR. EVANS NOTIFIED.
[2022-03-26 03:44] LABS: BASOPHILS ABSOLUTE AUTO 0.02 K/mm3 (0.00-0.23); BASOPHILS PERCENT AUTO 0 % (0-2); EOSINOPHILS ABSOLUTE AUTO 0.06 K/mm3 (0.00-0.68); EOSINOPHILS PERCENT AUTO 1 % (0-6); Hematocrit 36.6 % (37.0-53.0); Hemoglobin 11.6 g/dL (13.5-17.5); IMMATURE GRAN ABSOLUTE AUTO 0.03 K/mm3 (0.00-0.10); IMMATURE GRAN PERCENT AUTO 0 % (0-1); LYMPHOCYTES ABSOLUTE AUTO 0.88 K/mm3 (0.84-5.20); LYMPHOCYTES PERCENT AUTO 11 % (21-46); MONOCYTES ABSOLUTE AUTO 0.45 K/mm3 (0.16-1.47); MONOCYTES PERCENT AUTO 6 % (4-13); Mean Corpuscular HGB 28.2 pg (26.0-34.0); Mean Corpuscular HGB Conc 31.7 g/dL (31.5-36.5); Mean Corpuscular Volume 89 fL (80-100); Mean Platelet Volume 10.5 fL (9.1-12.4); NEUTROPHILS ABSOLUTE AUTO 6.37 K/mm3 (1.96-9.15); NEUTROPHILS PERCENT AUTO 81 % (41-73); Platelet Count 230 K/mm3 (150-400); RDW Coefficient Variation 14.1 % (11.7-14.2); RDW Standard Deviation 45.9 fL (35.1-46.3); Red Blood Cell Count 4.12 M/mm3 (4.30-5.90); White Blood Cell Count 7.81 K/mm3 (4.00-11.30)
[2022-03-26 04:06] LABS: Albumin, Blood 2.7 g/dL (3.4-5.0); Albumin/Globulin Ratio 0.6 (0.8-1.8); Bilirubin, Total 2.6 mg/dL (0.1-1.0); Bun/Creatinine Ratio 13.8 (12.0-20.0); Calcium, Blood 10.3 mg/dL (8.5-10.1); Creatinine, Blood 0.8 mg/dL (0.60-1.20); Globulin, Blood 4.5 g/dL (2.2-4.0); Potassium, Blood 3.9 mmol/L (3.5-5.5); Total Protein, Blood 7.2 g/dL (6.4-8.2)
--- NOTE | 2022-03-26 06:10 | NUR ---
PATIENT REPORT NAUSEA; MEDICATED PER EMAR; PATIENT ABLE TO FALL BACK TO SLEEP. PATIENT SLEPT FEW HOURS SINCE ARRIVAL. NO OTHER ACUTE CHANGES TO REPORT.
--- NOTE | 2022-03-26 06:57 | NUR ---
DIONNE TRUONG CALLED REGARDING PT AND HIS CANCER TEAM AT [facility]. DIONNE STATING TEJAL NEEDS TO GET AHOLD OF THIS TEAM. PHONE NUMBER [phone]. DIONNE STATES SHE IS ON HER WAY TO THE HOSPITAL.
--- NOTE | 2022-03-26 10:15 | NUR ---
Echocardiogram completed.
[2022-03-26 11:24] LABS: Adenovirus F 40/41 Not Detected (NOT DETECT); Astrovirus Not Detected (NOT DETECT); Campylobacter Sp Not Detected (NOT DETECT); Cryptosporidium Not Detected (NOT DETECT); Cyclospora Cayetanensis Not Detected (NOT DETECT); E. Coli O157 Not Detected (NOT DETECT); Entamoeba Histolytica Not Detected (NOT DETECT); Enteroaggregative E. coli-EAEC Not Detected (NOT DETECT); Enteropathogenic E. coli-EPEC Not Detected (NOT DETECT); Enterotoxigenic E. coli-ETEC Not Detected (NOT DETECT); Giardia Lamblia Not Detected (NOT DETECT); Norovirus GI/GII Not Detected (NOT DETECT); Plesiomonas Shigelloides Not Detected (NOT DETECT); Rotavirus A Not Detected (NOT DETECT); Salmonella Sp Not Detected (NOT DETECT); Sapovirus Not Detected (NOT DETECT); Shiga Toxin-prod E. coli-STEC Not Detected (NOT DETECT); Shigella/Enteroin E. coli-EIEC Not Detected (NOT DETECT); Vibrio Cholerae Not Detected (NOT DETECT); Vibrio Sp Not Detected (NOT DETECT); Yersinia Enterocolitica Detected (NOT DETECT)
--- NOTE | 2022-03-26 18:00 | NUR ---
REPORT GIVEN TO MEDICAL FLOOR RN AT 1703. PT TRANSFERED AT 1738 VIA WHEELCHAIR AND ON RA. PT ABLE TO TRANSFER SELF TO AND FROM WHEELCHAIR, TOLERATED WELL. PT BELONGINGS IN BAGS AND WITH PT FAMILY MEMBER WHO WAS PRESENT DURTING TRANSFER.PT CHART WITH PT DURING TRANSFER. IV ANTIBIOTIC IN GREEN BAG AND TRANSFERED WITH PT. NS RUNNNING AT 100MLS/HR PER ORDERS DURING DISCHARGE.
--- NOTE | 2022-03-26 18:11 | NUR ---
Pt arrived to 302 via wheelchair from pcu, obtained report, family in room, pt reports a h/a, states he takes ibuprophen, family asking about fentanyl, and oxycodone, call to Dr. Duckworth she ordered a one time dose of ibuprophen.
--- NOTE | 2022-03-26 19:15 | NUR ---
pt resting in bed, gave his ibuprofen, he seems depressed, call light in reach.
--- NOTE | 2022-03-26 22:21 | NUR ---
AWAKE AT HS, VOICED SEVERE HEADACHES, IBRPROFIN AND TYLENOL "DIDNT WORK". CALL PLACED TO MD GATE SUPERVISOR, ORDERS OBTAINED - SEE MAR FOR DETAILS. CALL LIGHT IN REACH. IVF INFUSING
[2022-03-27 04:57] LABS: Hematocrit 32.5 % (37.0-53.0); Hemoglobin 10.2 g/dL (13.5-17.5); Mean Corpuscular HGB 27.7 pg (26.0-34.0); Mean Corpuscular HGB Conc 31.4 g/dL (31.5-36.5); Mean Corpuscular Volume 88 fL (80-100); Mean Platelet Volume 11.1 fL (9.1-12.4); Platelet Count 184 K/mm3 (150-400); RDW Standard Deviation 45.9 fL (35.1-46.3); Red Blood Cell Count 3.68 M/mm3 (4.30-5.90); White Blood Cell Count 4.75 K/mm3 (4.00-11.30)
--- NOTE | 2022-03-27 04:57 | NUR ---
MANAGER HEART FAILURE SUMMARY AT SHIFT COMMENCE PT WS C/O SEVERE HEADACHE, VOICED CURRENT MEDS NOT EFFECTIVE. IV FENTANYL ADMIN AND MD NOTIFIED. ORDERS FOR OXYCODONE PO OBTAINED. SEE MAR FOR MEDS ADMINISTERED. IVF AND ABX ADMINISTERED PER MD ORDERS. HAS BEEN RESTING QUIETLY WITH FEW INTERRUPTIONS SINCE. CALL LIGHT IN REACH. VSS.
[2022-03-27 05:35] LABS: Albumin, Blood 2.3 g/dL (3.4-5.0); Albumin/Globulin Ratio 0.5 (0.8-1.8); Bun/Creatinine Ratio 19.1 (12.0-20.0); Calcium, Blood 9.8 mg/dL (8.5-10.1); Creatinine, Blood 0.79 mg/dL (0.60-1.20); Globulin, Blood 4.2 g/dL (2.2-4.0); Potassium, Blood 3.5 mmol/L (3.5-5.5); Total Protein, Blood 6.5 g/dL (6.4-8.2)
[2022-03-27] MEDS ORDERED: CAPSAICIN TOP (05:41)
[2022-03-27] MEDS ORDERED: ZOSTRIX HP56.6 GM TOP (05:42)
[2022-03-27] MEDS ORDERED: CHLO25B PO (05:43)
[2022-03-27] MEDS ORDERED: Doxycycline Mo100 M1 PO (05:44)
[2022-03-27] MEDS ORDERED: OLAN2.5 PO (05:45)
[2022-03-27] MEDS ORDERED: OXYC5 PO (05:46)
[2022-03-27] MEDS ORDERED: POTA10T PO (05:46)
[2022-03-27] MEDS ORDERED: STIVARGA40 MG PO (05:51)
[2022-03-27] MEDS ORDERED: SILDENAFIL CIT100 MG PO (05:52)
--- NOTE | 2022-03-27 18:30 | NUR ---
SHIFT SUMMARY NO ACUTE EVENTS. PTN PLEASANT A&O, INDEPENDENT IN ROOM. NO COMPLAINTS OF PAIN THIS SHIFT. PTN DOES HAVE DIARRHEA, WHICH HE REPORTS IS NORMAL FOR HIM. FEET WITH SOME NUMBNESS. IV FLUIDS AND ANTIBIOTICS ADMINISTERED.
--- NOTE | 2022-03-28 04:05 | NUR ---
SHIFT SUMMARY PATIENT REPORTED GI DISCOMFORT. SIGNIFICANT OTHER CALLED REPORTED HE TAKES PO REGLAN [address] ALFONSO ORDERED AND IS IN PATIENT MED RX. NO OTHER ACUTE CHANGES. PIV REMAINS INTACT. REPORTS TENDER AT TIMES IN HAND. IV ABX INFUSED. NS INFUSING AT 100 mL/HR. DENIES CHEST PAIN, SOB, AND N/V. VSS/AFEBRILE. AXOX 4 AND INDEPENDENT IN ROOM. RESTED MOST OF THE SHIFT WITH TV ON. CALL LIGHT IN REACH. BED IN LOWEST POSITION. WILL CONTINUE TO MONITOR UNTIL DAY SHIFT NURSE ASSUMES CARE.
[2022-03-28 05:27] LABS: Albumin, Blood 2.5 g/dL (3.4-5.0); Albumin/Globulin Ratio 0.6 (0.8-1.8); Bilirubin, Total 1.3 mg/dL (0.1-1.0); Bun/Creatinine Ratio 11.3 (12.0-20.0); Calcium, Blood 10.1 mg/dL (8.5-10.1); Creatinine, Blood 0.8 mg/dL (0.60-1.20); Globulin, Blood 4.3 g/dL (2.2-4.0); Potassium, Blood 3.7 mmol/L (3.5-5.5); Total Protein, Blood 6.8 g/dL (6.4-8.2)
[2022-03-28] MEDS ORDERED: LACT PO (11:19)
[2022-03-28] MEDS ORDERED: AMOCLA875 PO (11:20)
--- NOTE | 2022-03-28 11:47 | NUR ---
DISCHARGE SUMMARY PT RECEIVED DISCHARGE MEDICATION AND FOLLOWUP INSTRUCTIONS. PT VOICED COMPLETE UNDERSTANDING AND HAS NO QUESTIONS AT THIS TIME. IV IN HAND REMOVED WITH CATHETER TIP INTACT. MEDIPORT ACCESS REMOVED, BANDAGE PLACED OVER SITE. AWAITING PTS RIDE TO ARRIVE. WILL CONTINUE TO MONITOR
== END 2022-03-28 11:52 | disposition home or self-care (01) | DRG 445 ==
LOC: ER 18:45 → PCU 18:46 → MEDS 18:46 → PCU 18:46 → MEDS 03-26 17:44
PROVIDERS: Internal Medicine; Student in an Organized Health Care Education/Training Program; ADMIT Family Medicine
DX: K83.09 Other cholangitis (principal); A04.6 Enteritis due to Yersinia enterocolitica; C18.9 Malignant neoplasm of colon, unspecified; C78.7 Secondary malignant neoplasm of liver and intrahepatic bile duct; I10 Essential (primary) hypertension; R01.1 Cardiac murmur, unspecified; Z20.822 Contact with and (suspected) exposure to COVID-19; F17.210 Nicotine dependence, cigarettes, uncomplicated; K21.9 Gastro-esophageal reflux disease without esophagitis; Z90.49 Acquired absence of other specified parts of digestive tract; Z98.52 Vasectomy status; Z95.4 Presence of other heart-valve replacement; Z98.890 Other specified postprocedural states; Z79.82 Long term (current) use of aspirin; Z79.899 Other long term (current) drug therapy
CPT/HCPCS: 0241U; 36415; 71045; 74177; 80053; 83605; 84145; 85025; 85027; 87507; 93005; 93010; 93306; A9270; C9113; J0696; J1642; J1650; J2001; J2405; J2543; J3010; J7030; Q9967

== ENCOUNTER → 2022-06-29 | Outpatient (CLI) | payer OTHER ==
[~2022-06-29] MED LIST changes: +CAPSAICIN TOP; +CHLO25B PO; +Doxycycline Mo100 M1 PO; +LACT PO; +OLAN2.5 PO; +POTA10T PO; +SILDENAFIL CIT100 MG PO; +STIVARGA40 MG PO; +ZOSTRIX HP56.6 GM TOP
== END | disposition home or self-care (01) ==
LOC: LAB SHORT 12:30 → LAB 12:30
DX: C18.9 Malignant neoplasm of colon, unspecified (principal)
CPT/HCPCS: 82140

== ENCOUNTER 2022-09-02 14:33 | Day surgery (SDC) | payer OTHER ==
[2022-09-02] MEDS ORDERED: DECADRON4 M1 PO (19:18)
[2022-09-02] MEDS ORDERED: Diflucan100 MG PO (19:18)
[2022-09-02] MEDS ORDERED: LACT10SY PO (19:19)
[2022-09-02] MEDS ORDERED: FENT200LOZ MM (23:34)
[2022-09-05] MEDS ORDERED: Acetaminophen650 M1 PO (12:15)
[2022-09-05] MEDS ORDERED: CEFTRIAXONE2 G1 IV (12:15)
[2022-09-05] MEDS ORDERED: BENADRYL25 MG PO (12:16)
[2022-09-05] MEDS ORDERED: VISBIOME 112.51 EACH PO (12:16)
[2022-09-05] MEDS ORDERED: METR500 PO (12:16)
== END 2022-09-02 22:55 | disposition home or self-care (01) ==
LOC: US 14:33
DX: C18.3 Malignant neoplasm of hepatic flexure (principal); R18.8 Other ascites
CPT/HCPCS: 76705

== ENCOUNTER 2022-09-07 08:01 | Day surgery (SDC) | payer OTHER ==
[~2022-09-07 08:01] MED LIST changes: +Acetaminophen650 M1 PO; +BENADRYL25 MG PO; +CEFTRIAXONE2 G1 IV; +DECADRON4 M1 PO; +Diflucan100 MG PO; +FENT200LOZ MM; +LACT10SY PO; +VISBIOME 112.51 EACH PO
[2022-09-21] MEDS ORDERED: AMLO5 PO (08:43)
== END 2022-09-07 09:02 | disposition home or self-care (01) ==
LOC: ATC 08:01
DX: K75.0 Abscess of liver (principal)
CPT/HCPCS: 96374; J0696; J1642

== ENCOUNTER 2022-09-10 01:12 | Day surgery (SDC) | payer OTHER | END 2022-09-10 08:44 | disposition home or self-care (01) | LOC: ATC 01:12 | DX: K75.0 Abscess of liver (principal); I10 Essential (primary) hypertension; C18.9 Malignant neoplasm of colon, unspecified; C78.7 Secondary malignant neoplasm of liver and intrahepatic bile duct; E86.0 Dehydration; E87.6 Hypokalemia; K21.9 Gastro-esophageal reflux disease without esophagitis | CPT/HCPCS: 96374; J0696; J1642 ==

== ENCOUNTER 2022-09-11 01:16 | Day surgery (SDC) | payer OTHER | END 2022-09-11 08:51 | disposition home or self-care (01) | LOC: ATC 01:16 | DX: K75.0 Abscess of liver (principal); C18.9 Malignant neoplasm of colon, unspecified; C78.7 Secondary malignant neoplasm of liver and intrahepatic bile duct; E86.0 Dehydration; E87.6 Hypokalemia; I10 Essential (primary) hypertension; K21.9 Gastro-esophageal reflux disease without esophagitis | CPT/HCPCS: 96374; J0696; J1642 ==

== ENCOUNTER 2022-09-12 01:08 | Day surgery (SDC) | payer OTHER | END 2022-09-12 08:44 | disposition home or self-care (01) | LOC: ATC 01:08 | DX: K75.0 Abscess of liver (principal); C18.9 Malignant neoplasm of colon, unspecified; C78.7 Secondary malignant neoplasm of liver and intrahepatic bile duct; E86.0 Dehydration; E87.6 Hypokalemia; I10 Essential (primary) hypertension; K21.9 Gastro-esophageal reflux disease without esophagitis | CPT/HCPCS: 96374; J0696; J1642 ==

== ENCOUNTER 2022-09-13 01:58 | Day surgery (SDC) | payer OTHER ==
[2022-09-13 09:32] LABS: Albumin, Blood 2.3 g/dL (3.4-5.0); Albumin/Globulin Ratio 0.5 (0.8-1.8); Bilirubin, Total 0.6 mg/dL (0.1-1.0); Bun/Creatinine Ratio 19.9 (12.0-20.0); Calcium, Blood 9.9 mg/dL (8.5-10.1); Creatinine, Blood 0.6 mg/dL (0.60-1.20); Globulin, Blood 4.9 g/dL (2.2-4.0); Potassium, Blood 3.9 mmol/L (3.5-5.5); Total Protein, Blood 7.2 g/dL (6.4-8.2)
== END 2022-09-13 08:54 | disposition home or self-care (01) ==
LOC: ATC 01:58
PROVIDERS: Internal Medicine Hematology & Oncology
DX: K75.0 Abscess of liver (principal); C18.9 Malignant neoplasm of colon, unspecified; C78.7 Secondary malignant neoplasm of liver and intrahepatic bile duct; E86.0 Dehydration; E87.6 Hypokalemia; I10 Essential (primary) hypertension; K21.9 Gastro-esophageal reflux disease without esophagitis
CPT/HCPCS: 80053; 96374; J0696; J1642

== ENCOUNTER 2022-09-14 02:08 | Day surgery (SDC) | payer OTHER | END 2022-09-14 08:57 | disposition home or self-care (01) | LOC: ATC 02:08 | DX: K75.0 Abscess of liver (principal); C18.9 Malignant neoplasm of colon, unspecified; C78.7 Secondary malignant neoplasm of liver and intrahepatic bile duct; K21.9 Gastro-esophageal reflux disease without esophagitis; I10 Essential (primary) hypertension; E86.0 Dehydration; E87.6 Hypokalemia | CPT/HCPCS: J0696; J1642 ==

== ENCOUNTER 2022-09-15 00:14 | Day surgery (SDC) | payer OTHER ==
[2022-09-21] MEDS ORDERED: AMLO5 PO (08:43)
== END 2022-09-15 08:37 | disposition home or self-care (01) ==
LOC: ATC 00:14
DX: K75.0 Abscess of liver (principal); C18.9 Malignant neoplasm of colon, unspecified; C78.7 Secondary malignant neoplasm of liver and intrahepatic bile duct; E86.0 Dehydration; E87.6 Hypokalemia; K21.9 Gastro-esophageal reflux disease without esophagitis; I10 Essential (primary) hypertension
CPT/HCPCS: 96374; J0696; J1642

== ENCOUNTER 2022-09-16 00:58 | Day surgery (SDC) | payer OTHER ==
[2022-09-16 09:50] LABS: BASOPHILS ABSOLUTE AUTO 0.05 K/mm3 (0.00-0.23); BASOPHILS PERCENT AUTO 1 % (0-2); EOSINOPHILS ABSOLUTE AUTO 0.21 K/mm3 (0.00-0.68); EOSINOPHILS PERCENT AUTO 3 % (0-6); Hematocrit 30.2 % (37.0-53.0); Hemoglobin 9.6 g/dL (13.5-17.5); IMMATURE GRAN ABSOLUTE AUTO 0.04 K/mm3 (0.00-0.10); IMMATURE GRAN PERCENT AUTO 1 % (0-1); LYMPHOCYTES ABSOLUTE AUTO 0.99 K/mm3 (0.84-5.20); LYMPHOCYTES PERCENT AUTO 13 % (21-46); MONOCYTES ABSOLUTE AUTO 0.44 K/mm3 (0.16-1.47); MONOCYTES PERCENT AUTO 6 % (4-13); Mean Corpuscular HGB 26.7 pg (26.0-34.0); Mean Corpuscular HGB Conc 31.8 g/dL (31.5-36.5); Mean Corpuscular Volume 84 fL (80-100); Mean Platelet Volume 10.4 fL (9.1-12.4); NEUTROPHILS ABSOLUTE AUTO 5.92 K/mm3 (1.96-9.15); NEUTROPHILS PERCENT AUTO 77 % (41-73); Platelet Count 374 K/mm3 (150-400); RDW Coefficient Variation 19.6 % (11.7-14.2); RDW Standard Deviation 59.6 fL (35.1-46.3); White Blood Cell Count 7.65 K/mm3 (4.00-11.30)
[2022-09-21] MEDS ORDERED: AMLO5 PO (08:43)
== END 2022-09-16 08:40 | disposition home or self-care (01) ==
LOC: ATC 00:58
PROVIDERS: Internal Medicine Hematology & Oncology
DX: K75.0 Abscess of liver (principal); C18.9 Malignant neoplasm of colon, unspecified; C78.7 Secondary malignant neoplasm of liver and intrahepatic bile duct; E86.0 Dehydration; E87.6 Hypokalemia; I10 Essential (primary) hypertension; K21.9 Gastro-esophageal reflux disease without esophagitis
CPT/HCPCS: 85025; 96374; J0696; J1642

== ENCOUNTER 2022-09-17 01:21 | Day surgery (SDC) | payer OTHER ==
[2022-09-21] MEDS ORDERED: AMLO5 PO (08:43)
== END 2022-09-17 08:42 | disposition home or self-care (01) ==
LOC: ATC 01:21
DX: K75.0 Abscess of liver (principal); I10 Essential (primary) hypertension; F17.210 Nicotine dependence, cigarettes, uncomplicated; Z79.899 Other long term (current) drug therapy
CPT/HCPCS: 96374; J0696; J1642

== ENCOUNTER 2022-09-20 09:52 | Day surgery (SDC) | payer OTHER ==
[2022-09-21] MEDS ORDERED: AMLO5 PO (08:43)
== END 2022-09-20 22:34 | disposition home or self-care (01) ==
LOC: ATC 09:52
DX: K75.0 Abscess of liver (principal); I10 Essential (primary) hypertension; F17.210 Nicotine dependence, cigarettes, uncomplicated
CPT/HCPCS: 96374; J0696; J1642

== ENCOUNTER 2022-09-23 01:19 | Day surgery (SDC) | payer OTHER ==
[~2022-09-23 01:19] MED LIST changes: +AMLO5 PO
[2022-09-23] MEDS ORDERED: Prednisone10 MG PO (12:01)
[2022-09-23 12:15] LABS: BASOPHILS ABSOLUTE AUTO 0.02 K/mm3 (0.00-0.23); BASOPHILS PERCENT AUTO 0 % (0-2); EOSINOPHILS ABSOLUTE AUTO 0.34 K/mm3 (0.00-0.68); EOSINOPHILS PERCENT AUTO 5 % (0-6); Hematocrit 31.2 % (37.0-53.0); Hemoglobin 9.8 g/dL (13.5-17.5); IMMATURE GRAN ABSOLUTE AUTO 0.02 K/mm3 (0.00-0.10); IMMATURE GRAN PERCENT AUTO 0 % (0-1); LYMPHOCYTES ABSOLUTE AUTO 0.44 K/mm3 (0.84-5.20); LYMPHOCYTES PERCENT AUTO 7 % (21-46); MONOCYTES ABSOLUTE AUTO 0.14 K/mm3 (0.16-1.47); MONOCYTES PERCENT AUTO 2 % (4-13); Mean Corpuscular HGB 27.1 pg (26.0-34.0); Mean Corpuscular HGB Conc 31.4 g/dL (31.5-36.5); Mean Corpuscular Volume 86 fL (80-100); Mean Platelet Volume 10.4 fL (9.1-12.4); NEUTROPHILS ABSOLUTE AUTO 5.59 K/mm3 (1.96-9.15); NEUTROPHILS PERCENT AUTO 85 % (41-73); Platelet Count 248 K/mm3 (150-400); RDW Coefficient Variation 19.3 % (11.7-14.2); Red Blood Cell Count 3.61 M/mm3 (4.30-5.90); White Blood Cell Count 6.55 K/mm3 (4.00-11.30)
[2022-09-23 12:22] LABS: Albumin, Blood 2.8 g/dL (3.4-5.0); Albumin/Globulin Ratio 0.5 (0.8-1.8); Bilirubin, Total 0.7 mg/dL (0.1-1.0); Bun/Creatinine Ratio 22.8 (12.0-20.0); Calcium, Blood 9.8 mg/dL (8.5-10.1); Creatinine, Blood 0.61 mg/dL (0.60-1.20); Globulin, Blood 5.3 g/dL (2.2-4.0); Potassium, Blood 4.1 mmol/L (3.5-5.5); Total Protein, Blood 8.1 g/dL (6.4-8.2)
== END 2022-09-23 11:45 | disposition home or self-care (01) ==
LOC: ATC 01:19
PROVIDERS: Internal Medicine Hematology & Oncology
DX: K75.0 Abscess of liver (principal); C18.9 Malignant neoplasm of colon, unspecified; C78.7 Secondary malignant neoplasm of liver and intrahepatic bile duct; I10 Essential (primary) hypertension; E86.0 Dehydration; E87.6 Hypokalemia
CPT/HCPCS: 80053; 82378; 85025; 96374; J0696; J1642

== ENCOUNTER 2022-09-27 01:27 | Day surgery (SDC) | payer OTHER ==
[~2022-09-27 01:27] MED LIST changes: +Prednisone10 MG PO
== END 2022-09-27 08:38 | disposition home or self-care (01) ==
LOC: ATC 01:27
DX: K75.0 Abscess of liver (principal); C18.9 Malignant neoplasm of colon, unspecified; C78.7 Secondary malignant neoplasm of liver and intrahepatic bile duct; F17.210 Nicotine dependence, cigarettes, uncomplicated; I10 Essential (primary) hypertension; K21.9 Gastro-esophageal reflux disease without esophagitis
CPT/HCPCS: 96374; J0696; J1642

== ENCOUNTER 2022-09-28 00:45 | Day surgery (SDC) | payer OTHER | END 2022-09-28 08:39 | disposition home or self-care (01) | LOC: ATC 00:45 | DX: K56.609 Unspecified intestinal obstruction, unspecified as to partial versus complete obstruction (principal); E86.0 Dehydration; E87.6 Hypokalemia; I10 Essential (primary) hypertension; K21.9 Gastro-esophageal reflux disease without esophagitis; Z85.038 Personal history of other malignant neoplasm of large intestine; F17.210 Nicotine dependence, cigarettes, uncomplicated | CPT/HCPCS: 96374; J0696; J1642 ==

== ENCOUNTER 2022-09-30 03:17 | Day surgery (SDC) | payer OTHER | END 2022-09-30 09:39 | disposition home or self-care (01) | LOC: ATC 03:17 | DX: K56.609 Unspecified intestinal obstruction, unspecified as to partial versus complete obstruction (principal); K75.0 Abscess of liver; E86.0 Dehydration; E87.6 Hypokalemia; I10 Essential (primary) hypertension; F17.210 Nicotine dependence, cigarettes, uncomplicated; K21.9 Gastro-esophageal reflux disease without esophagitis; Z85.038 Personal history of other malignant neoplasm of large intestine; Z79.899 Other long term (current) drug therapy | CPT/HCPCS: 96374; J0696; J1642 ==

== ENCOUNTER 2022-10-01 00:46 | Day surgery (SDC) | payer OTHER | END 2022-10-01 08:45 | disposition home or self-care (01) | LOC: ATC 00:46 | DX: K56.609 Unspecified intestinal obstruction, unspecified as to partial versus complete obstruction (principal); E86.0 Dehydration; I10 Essential (primary) hypertension; K21.9 Gastro-esophageal reflux disease without esophagitis; F17.210 Nicotine dependence, cigarettes, uncomplicated; Z85.038 Personal history of other malignant neoplasm of large intestine; Z79.899 Other long term (current) drug therapy | CPT/HCPCS: 96374; J0696; J1642 ==

== ENCOUNTER 2022-10-02 02:26 | Day surgery (SDC) | payer OTHER | END 2022-10-02 08:42 | disposition home or self-care (01) | LOC: ATC 02:26 | DX: K75.0 Abscess of liver (principal); F17.210 Nicotine dependence, cigarettes, uncomplicated; C18.9 Malignant neoplasm of colon, unspecified; C78.7 Secondary malignant neoplasm of liver and intrahepatic bile duct; E86.0 Dehydration; E87.6 Hypokalemia; I10 Essential (primary) hypertension; K21.9 Gastro-esophageal reflux disease without esophagitis | CPT/HCPCS: J0696; J1642 ==

== ENCOUNTER 2022-10-03 00:28 | Day surgery (SDC) | payer OTHER | END 2022-10-03 08:35 | disposition home or self-care (01) | LOC: ATC 00:28 | DX: K75.0 Abscess of liver (principal); F17.210 Nicotine dependence, cigarettes, uncomplicated; C18.9 Malignant neoplasm of colon, unspecified; C78.7 Secondary malignant neoplasm of liver and intrahepatic bile duct; E86.0 Dehydration; E87.6 Hypokalemia; I10 Essential (primary) hypertension; K21.9 Gastro-esophageal reflux disease without esophagitis | CPT/HCPCS: J0696; J1642 ==

== ENCOUNTER → 2022-10-05 | Outpatient (CLI) | payer OTHER ==
[2022-10-06 10:03] LABS: C DIFFICILE DNA NEGATIVE (Negative)
== END | disposition home or self-care (01) ==
LOC: LAB SHORT 12:42
PROVIDERS: Internal Medicine Hematology & Oncology
DX: C18.9 Malignant neoplasm of colon, unspecified (principal); A04.71 Enterocolitis due to Clostridium difficile, recurrent; R19.7 Diarrhea, unspecified
CPT/HCPCS: 87015; 87045; 87046; 87205; 87493; 87899

== ENCOUNTER 2022-12-17 17:48 | Emergency (ER) | payer OTHER ==
[~2022-12-17] VITALS: Ht 180.3 cm; Wt 79.4 kg
[2022-12-17 18:21] LABS: BASOPHILS ABSOLUTE AUTO 0.04 K/mm3 (0.00-0.23); BASOPHILS PERCENT AUTO 1 % (0-2); EOSINOPHILS ABSOLUTE AUTO 0.15 K/mm3 (0.00-0.68); EOSINOPHILS PERCENT AUTO 2 % (0-6); Hematocrit 33.1 % (37.0-53.0); Hemoglobin 10.9 g/dL (13.5-17.5); IMMATURE GRAN ABSOLUTE AUTO 0.03 K/mm3 (0.00-0.10); IMMATURE GRAN PERCENT AUTO 0 % (0-1); LYMPHOCYTES ABSOLUTE AUTO 0.54 K/mm3 (0.84-5.20); LYMPHOCYTES PERCENT AUTO 6 % (21-46); MONOCYTES ABSOLUTE AUTO 0.67 K/mm3 (0.16-1.47); MONOCYTES PERCENT AUTO 8 % (4-13); Mean Corpuscular HGB 26.5 pg (26.0-34.0); Mean Corpuscular HGB Conc 32.9 g/dL (31.5-36.5); Mean Corpuscular Volume 81 fL (80-100); Mean Platelet Volume 10.9 fL (9.1-12.4); NEUTROPHILS ABSOLUTE AUTO 7.28 K/mm3 (1.96-9.15); NEUTROPHILS PERCENT AUTO 84 % (41-73); Platelet Count 217 K/mm3 (150-400); RDW Coefficient Variation 20.6 % (11.7-14.2); RDW Standard Deviation 59.7 fL (35.1-46.3); Red Blood Cell Count 4.11 M/mm3 (4.30-5.90); White Blood Cell Count 8.71 K/mm3 (4.00-11.30)
[2022-12-17 18:39] LABS: Albumin, Blood 2.8 g/dL (3.4-5.0); Albumin/Globulin Ratio 0.6 (0.8-1.8); Bilirubin, Total 8.1 mg/dL (0.1-1.0); Bun/Creatinine Ratio 21.4 (12.0-20.0); Calcium, Blood 10.2 mg/dL (8.5-10.1); Creatinine, Blood 0.61 mg/dL (0.60-1.20); Globulin, Blood 4.4 g/dL (2.2-4.0); Potassium, Blood 4.4 mmol/L (3.5-5.5); Total Protein, Blood 7.2 g/dL (6.4-8.2)
[2022-12-17 20:55] LABS: Source, Urine Clean Catch
[2022-12-17 20:57] LABS: Blood, Urine 1+ (Neg); Glucose Qualitative, Urine Neg (Neg); Ketones, Urine 1+ (Neg); Leukocyte Esterase, Urine 1+ (Neg); Nitrite, Urine Neg (Neg); Protein, Urine 2+ (Neg); Specific Gravity, Urine 1.025 (1.003-1.022); Urobilinogen, Urine 2+ (Normal)
[2022-12-17 21:03] LABS: Bilirubin, Urine 3+ (Neg)
[2022-12-17 21:04] LABS: Appearance, Urine Clear (Clear); Color, Urine Amber (P-Yellow)
[2022-12-17 21:06] LABS: Bacteria Mod /hpf; Granular Casts 0-2 /lpf (0); Red Blood Cells, Urine 0-2 /hpf (0-2); Squamous Epithelial Cells Few /hpf (Few); White Blood Cells, Urine 0-2 /hpf (0-5)
== END 2022-12-17 21:30 | disposition home or self-care (01) ==
LOC: ER 17:48
PROVIDERS: Emergency Medicine; Student in an Organized Health Care Education/Training Program
DX: R10.12 Left upper quadrant pain (principal); E80.6 Other disorders of bilirubin metabolism; R18.8 Other ascites; C18.9 Malignant neoplasm of colon, unspecified; I10 Essential (primary) hypertension; F17.210 Nicotine dependence, cigarettes, uncomplicated; Z79.52 Long term (current) use of systemic steroids; Z79.899 Other long term (current) drug therapy
CPT/HCPCS: 36415; 74176; 80053; 81001; 83690; 85025; 87086; 96374; 99284-25; J1170

== ENCOUNTER 2023-01-01 22:26 | Emergency (ER) | payer OTHER ==
[~2023-01-01] VITALS: Ht 180.3 cm; Wt 86.2 kg
[2023-01-02 00:05] LABS: BASOPHILS ABSOLUTE AUTO 0.07 K/mm3 (0.00-0.23); BASOPHILS PERCENT AUTO 1 % (0-2); EOSINOPHILS ABSOLUTE AUTO 0.08 K/mm3 (0.00-0.68); EOSINOPHILS PERCENT AUTO 1 % (0-6); Hematocrit 35.8 % (37.0-53.0); Hemoglobin 11.9 g/dL (13.5-17.5); IMMATURE GRAN ABSOLUTE AUTO 0.08 K/mm3 (0.00-0.10); IMMATURE GRAN PERCENT AUTO 1 % (0-1); LYMPHOCYTES ABSOLUTE AUTO 0.74 K/mm3 (0.84-5.20); LYMPHOCYTES PERCENT AUTO 6 % (21-46); MONOCYTES ABSOLUTE AUTO 0.57 K/mm3 (0.16-1.47); MONOCYTES PERCENT AUTO 5 % (4-13); Mean Corpuscular HGB 26.7 pg (26.0-34.0); Mean Corpuscular HGB Conc 33.2 g/dL (31.5-36.5); Mean Corpuscular Volume 80 fL (80-100); Mean Platelet Volume 10.5 fL (9.1-12.4); NEUTROPHILS ABSOLUTE AUTO 10.72 K/mm3 (1.96-9.15); NEUTROPHILS PERCENT AUTO 87 % (41-73); Platelet Count 253 K/mm3 (150-400); RDW Coefficient Variation 23.1 % (11.7-14.2); RDW Standard Deviation 66.4 fL (35.1-46.3); Red Blood Cell Count 4.46 M/mm3 (4.30-5.90); White Blood Cell Count 12.26 K/mm3 (4.00-11.30)
[2023-01-02 00:21] LABS: Albumin, Blood 1.9 g/dL (3.4-5.0); Albumin/Globulin Ratio 0.5 (0.8-1.8); Bilirubin, Total 10.6 mg/dL (0.1-1.0); Bun/Creatinine Ratio 24.1 (12.0-20.0); Calcium, Blood 9.9 mg/dL (8.5-10.1); Creatinine, Blood 0.79 mg/dL (0.60-1.20); Globulin, Blood 4.2 g/dL (2.2-4.0); Potassium, Blood 4.5 mmol/L (3.5-5.5); Total Protein, Blood 6.1 g/dL (6.4-8.2)
[2023-01-02 02:30] VITALS: BP 111/78
== END 2023-01-02 02:44 | disposition home or self-care (01) ==
LOC: ER 22:26
PROVIDERS: Student in an Organized Health Care Education/Training Program
DX: R18.8 Other ascites (principal); R14.0 Abdominal distension (gaseous); E80.6 Other disorders of bilirubin metabolism; I10 Essential (primary) hypertension; K21.9 Gastro-esophageal reflux disease without esophagitis; F17.210 Nicotine dependence, cigarettes, uncomplicated; Z91.041 Radiographic dye allergy status; Z79.899 Other long term (current) drug therapy
CPT/HCPCS: 32554; 80053; 85025; 93005; 93010; 96374; 96376; 99284-25; J1170; J1642

== ENCOUNTER 2023-01-04 06:16 | Day surgery (SDC) | payer OTHER ==
[2023-01-04] VITALS (9 sets, daily range): BP systolic 94–115; BP diastolic 68–90
[~2023-01-04] VITALS: Ht 180.3 cm; Wt 87.0 kg
--- NOTE | 2023-01-04 06:57 | NUR ---
History, Chart, Medications and Allergies reviewed before start of procedure.Patient confirms NPO status and agrees with scheduled surgery. Pre-Op teaching done. Pt verbalizes understanding. Patient States Post-Procedure ride home has been arranged. PT HERE VIA W/C. PT ABLE TO AMBULATE BUT IS WEAK. SKIN JAUNDICE. LUNGS CLEAR THROUGH OUT BUT UNABLE TO AUSCULTATE BREATH SOUNDS IN RIGHT LOWER LOBE
[2023-01-04] MEDS ORDERED: FENT200LOZ TOP (07:11)
[2023-01-04] MEDS ORDERED: SPIR25 (07:22)
[2023-01-04] MEDS ORDERED: NORTRIPTYLINE H1012 PO (07:23)
--- NOTE | 2023-01-04 09:20 | NUR ---
Patient up to Ambulate independently. Gait steady. Discharge instructions reviewed with patient. Patient verbalizes understanding. Copy given to patient to take home. Patient States Post-Procedure ride home has been arranged. Discharged via wheelchair to private car for ride home. PT GIVEN [employer] CATH RX SHEET AND ALSO I FAXED IT TO THE [facility]. I TOLD DAMIÁN THE PT SUPERVISOR PRODUCTION DEPARTMENT THAT IF SHE HAS ANY QUESTIONS OR TROUBLE WITH SUPPLIES TO CALL THE NUMBER ON DISCHARGE PAPER WORK OR DR ARREAGA, AND IF NEEDED CAN CALL [facility] IF CANT GET ANSWERS
== END 2023-01-04 22:40 | disposition home or self-care (01) ==
LOC: ORSCSDS 06:16 → ORSCMMR 06:16 → ORSCSDS 22:40
PROVIDERS: Surgery
PROC: 0W9930Z Drainage of Right Pleural Cavity with Drainage Device, Percutaneous Approach (ICD-10-PCS; principal; 2023-01-04 07:30)
DX: C18.9 Malignant neoplasm of colon, unspecified (principal); R18.8 Other ascites; I10 Essential (primary) hypertension; F17.210 Nicotine dependence, cigarettes, uncomplicated; C78.7 Secondary malignant neoplasm of liver and intrahepatic bile duct; Z79.899 Other long term (current) drug therapy
CPT/HCPCS: C1729; J0690; J2704; J2795; J7120

== ENCOUNTER 2023-01-06 19:10 | Inpatient (IN) | payer OTHER ==
[~2023-01-06] VITALS: Ht 180.3 cm; Wt 78.6 kg
[~2023-01-06 19:10] MED LIST changes: +FENT200LOZ TOP; +NORTRIPTYLINE H1012 PO; +SPIR25
[2023-01-06 20:49] LABS: BASOPHILS ABSOLUTE AUTO 0.05 K/mm3 (0.00-0.23); BASOPHILS PERCENT AUTO 0 % (0-2); EOSINOPHILS ABSOLUTE AUTO 0.02 K/mm3 (0.00-0.68); EOSINOPHILS PERCENT AUTO 0 % (0-6); Hematocrit 37.8 % (37.0-53.0); Hemoglobin 12.8 g/dL (13.5-17.5); IMMATURE GRAN ABSOLUTE AUTO 0.18 K/mm3 (0.00-0.10); IMMATURE GRAN PERCENT AUTO 1 % (0-1); LYMPHOCYTES ABSOLUTE AUTO 0.73 K/mm3 (0.84-5.20); LYMPHOCYTES PERCENT AUTO 5 % (21-46); MONOCYTES ABSOLUTE AUTO 0.95 K/mm3 (0.16-1.47); MONOCYTES PERCENT AUTO 7 % (4-13); Mean Corpuscular HGB Conc 33.9 g/dL (31.5-36.5); Mean Corpuscular Volume 80 fL (80-100); NEUTROPHILS ABSOLUTE AUTO 11.63 K/mm3 (1.96-9.15); NEUTROPHILS PERCENT AUTO 86 % (41-73); Platelet Count 219 K/mm3 (150-400); RDW Coefficient Variation 23.5 % (11.7-14.2); RDW Standard Deviation 66.7 fL (35.1-46.3); Red Blood Cell Count 4.74 M/mm3 (4.30-5.90); White Blood Cell Count 13.56 K/mm3 (4.00-11.30)
[2023-01-06 20:50] LABS: Mean Platelet Volume 9.8 fL (9.1-12.4)
[2023-01-06 21:23] LABS: Albumin/Globulin Ratio 0.4 (0.8-1.8); Bun/Creatinine Ratio 29.3 (12.0-20.0); Calcium, Blood 9.6 mg/dL (8.5-10.1); Creatinine, Blood 1.47 mg/dL (0.60-1.20); Globulin, Blood 4.5 g/dL (2.2-4.0); Potassium, Blood 5.4 mmol/L (3.5-5.5); Total Protein, Blood 6.5 g/dL (6.4-8.2)
[2023-01-06 23:07] LABS: Bilirubin, Direct 15.5 mg/dL (0.0-0.3)
--- NOTE | 2023-01-06 23:27 | NUR ---
DIALYSIS NOTE RN CONSULTATION PROVIDED FOR EFFLUENT SAMPLE COLECTION. DETERMINED THAT PT WAS NOT ON DIAYSIS AND THE CATH WAS AN ABD PLEUR X DRAIN. NO SAMPLE COLLECTED OR DIRECT PT CARE PROVIDED BY THIS PIPELAYER.
[2023-01-07] VITALS (17 sets, daily range): BP systolic 92–135; BP diastolic 60–74
[2023-01-07 00:42] LABS: Source, Urine Clean Catch
[2023-01-07 01:02] LABS: Appearance, Urine Hazy (Clear); Blood, Urine 5+ (Neg); Color, Urine Brown (P-Yellow); Glucose Qualitative, Urine Neg (Neg); Ketones, Urine Neg (Neg); Leukocyte Esterase, Urine 1+ (Neg); Nitrite, Urine Neg (Neg); Protein, Urine 2+ (Neg); Urobilinogen, Urine 2+ (Normal)
[2023-01-07 01:06] LABS: Automated BF WBC Count 0.393 K/mm3 (0-999)
[2023-01-07 01:17] LABS: Bilirubin, Urine 3+ (Neg)
[2023-01-07 01:19] LABS: Bacteria Mod /hpf; Granular Casts 0-2 /lpf (0); Red Blood Cells, Urine 50-100 /hpf (0-2); Squamous Epithelial Cells Rare /hpf (Few); White Blood Cells, Urine 0-2 /hpf (0-5)
[2023-01-07 01:21] LABS: Protein, Body Fluid 1.5 g/dL
[2023-01-07 02:21] LABS: RBC Count, Body Fluid 920 /mm3 (0-0)
[2023-01-07 02:23] LABS: Body Fluid WBC Count 393 /mm3 (0-999)
[2023-01-07 02:24] LABS: Appearance, Body Fluid Hazy (Clear); Color, Body Fluid Yellow (None-Yellow)
--- NOTE | 2023-01-07 02:30 | NUR ---
ASSUMED CARE PATIENT ARRIVED FROM ED. ALERT AND ORIENTED. PATIENT WAS ABLE TO TAKE A FEW STEPS FROM THE STRETCHER TO BED W/STANBY ASSIST. TOLERATED WELL. R CHEST PORT ACCESSED IN ED, NO CURRENT INFUSIONS RUNNING. VS STABLE. PATIENT IS JAUNDICE, ABD IS DISTENDED/FIRM. ABD DRAIN IS CLEAN/DRY/INTACT. SISTER AND SPOUSE AT BEDSIDE. PLAN OF CARE EXPLAINED TO FAMILY NO FURTHER QUESTIONS AT THIS TIME.
[2023-01-07 02:40] LABS: Total Cell Count, Body Fluid 100
[2023-01-07 03:28] LABS: Hemoglobin 10.4 g/dL (13.5-17.5); Mean Corpuscular HGB 26.9 pg (26.0-34.0); Mean Corpuscular HGB Conc 33.5 g/dL (31.5-36.5); Mean Corpuscular Volume 80 fL (80-100); Platelet Count 168 K/mm3 (150-400); RDW Coefficient Variation 22.9 % (11.7-14.2); Red Blood Cell Count 3.87 M/mm3 (4.30-5.90); White Blood Cell Count 10.72 K/mm3 (4.00-11.30)
[2023-01-07 03:46] LABS: Albumin, Blood 1.7 g/dL (3.4-5.0); Albumin/Globulin Ratio 0.4 (0.8-1.8); Bilirubin, Total 15.6 mg/dL (0.1-1.0); Bun/Creatinine Ratio 29.7 (12.0-20.0); Calcium, Blood 9.1 mg/dL (8.5-10.1); Creatinine, Blood 1.48 mg/dL (0.60-1.20); Globulin, Blood 3.8 g/dL (2.2-4.0); Potassium, Blood 5.1 mmol/L (3.5-5.5); Total Protein, Blood 5.5 g/dL (6.4-8.2)
[2023-01-07 04:27] LABS: Mean Platelet Volume 10.8 fL (9.1-12.4)
--- NOTE | 2023-01-07 05:00 | NUR ---
ASSUMED CARE ASSUMED CARE FROM TREY VELÁZQUEZ. PATIENT IS ALERT AND ORIENTED X4. VS STABLE. EXTENSIVE SKIN RASH. REQUESTING TYELENOL FOR PAIN. PER TREY VELÁZQUEZ X1 BLOODY BOWEL MOVEMENT THIS SHIFT. LUNGS CLEAR, HEART TONES AUDIBLE. BOWEL SOUNDS HYPOACTIVE.
--- NOTE | 2023-01-07 06:17 | NUR ---
SHIFT SUMMARY PATIENT A&O FOLLOWING COMMANDS. VS STABLE. PATIENT CONTINUES TO BE JAUNDICE. ABD DRAIN CDI. PATIENT IS NSR ON ROOM AIR. PAIN IS STABLE, WITH PAIN PATCH IN PLACE.
[2023-01-07 07:59] LABS: Percent Saturation 5.3 % (20.0-50.0)
--- NOTE | 2023-01-07 11:05 | NUR ---
ASSUMED CARE REPORT FROM HARSHAD YANG AT 0700. PT RESTING IN BED. A&OX 3. FOLLOWS COMMANDS. REPORTS CHRONIC PAIN TO ABD, MEDICATED ORDERED. LUNGS DIM IN BASES, ON RA. SHALLOW RESP. SR, RATE 70'S. BP STABLE. ABD DISTENDED, FIRM, HYPOACTIVE BT. FULL LIQUID DIET. PLEUREX DRAIN TO RIGHT ABD. FAMILY AT BEDSIDE. PENDING TRANSFER TO [facility]. WILL CONTINUE TO MONITOR.
--- NOTE | 2023-01-07 11:32 | NUR ---
Supportive visit this AM. Pt resting in bed and appears weak and fatigued. SO at bedside. Pt reports a tolerable 4/10 pain. He reports current regimen is managing his pain. Brief review of plan of care. Plan for transfer to [facility] when bed becomes available for interventional radiology. Offered therapeutic listening as Pt and SO having established with [facility]. SO reports his Palliative Care RN Trista has discussed resources available for him including hospice when he is ready. Continued supportive visit. Palliative Care will remain available
--- NOTE | 2023-01-07 18:00 | NUR ---
SHIFT SUMMARY NO ACUTE CHANGES THIS SHIFT. PENDING TRANSFER TO [facility]. VSS. LUNGS DIM. SR, RATE 80'S. ABD DISTENDED, FIRM, HYPOACTIVE X 4. TENDER. PLEURIX IN PLACE, DRESSING C/D/I. MEDIPORT TO RIGHT CHEST WALL, TKO. FULL LIQUID DIET, TOLERATING WELL. SO AT BEDSIDE. WILL CONTINUE TO MONITOR UNTIL REPORT TO ONCOMING NURSE.
--- NOTE | 2023-01-07 19:58 | NUR ---
ASSUMED CARE PT IS A&O X3; MAP >65; SPO2 >92% ON RA. NO C/O OF CP, SOB, OR NAUSEA. PT HAS FLAT AFFECT. NO C/O OF PAIN AT THIS TIME. ABDOMEN IS DISTENDED. PT'S S/O AT BEDSIDE.
[2023-01-08] VITALS (8 sets, daily range): BP systolic 94–106; BP diastolic 59–71
[2023-01-08 04:16] LABS: BASOPHILS ABSOLUTE AUTO 0.03 K/mm3 (0.00-0.23); BASOPHILS PERCENT AUTO 0 % (0-2); EOSINOPHILS ABSOLUTE AUTO 0.06 K/mm3 (0.00-0.68); EOSINOPHILS PERCENT AUTO 1 % (0-6); Hematocrit 31.7 % (37.0-53.0); Hemoglobin 10.9 g/dL (13.5-17.5); IMMATURE GRAN ABSOLUTE AUTO 0.15 K/mm3 (0.00-0.10); IMMATURE GRAN PERCENT AUTO 2 % (0-1); LYMPHOCYTES ABSOLUTE AUTO 0.66 K/mm3 (0.84-5.20); LYMPHOCYTES PERCENT AUTO 7 % (21-46); MONOCYTES ABSOLUTE AUTO 0.98 K/mm3 (0.16-1.47); MONOCYTES PERCENT AUTO 10 % (4-13); Mean Corpuscular HGB 27.3 pg (26.0-34.0); Mean Corpuscular HGB Conc 34.4 g/dL (31.5-36.5); Mean Corpuscular Volume 79 fL (80-100); Mean Platelet Volume 10.3 fL (9.1-12.4); NEUTROPHILS ABSOLUTE AUTO 8.32 K/mm3 (1.96-9.15); NEUTROPHILS PERCENT AUTO 82 % (41-73); Platelet Count 195 K/mm3 (150-400); RDW Coefficient Variation 22.7 % (11.7-14.2); RDW Standard Deviation 65.3 fL (35.1-46.3)
--- NOTE | 2023-01-08 04:19 | NUR ---
SHIFT SUMMARY PATIENT TRANSFERED FROM ICU LAST NIGHT TO PCU 4. ABLE TO WALK IN ROOM. LETHARGIC WHEN HE FIRST ARRIVED, MORE ALERT NOW SIITING UP IN BED WATCHING TV. ORIENTED X4. 02 SATS >95% ON RA. HR SR 90s. BP STABLE. STATES PAIN IS AT TOLERABLE LEVEL AT THIS TIME. WALKED TO BATHROOM AND URINATED/ UNMEASURED. DARK YELLOW. MEDIPORT WITH TKO INF. INDEPENDENT WITH REPOSITIONING. CALL LIGHT IN REACH
[2023-01-08 04:37] LABS: Albumin, Blood 2.1 g/dL (3.4-5.0); Albumin/Globulin Ratio 0.6 (0.8-1.8); Bilirubin, Total 17.6 mg/dL (0.1-1.0); Calcium, Blood 9.6 mg/dL (8.5-10.1); Creatinine, Blood 1.39 mg/dL (0.60-1.20); Globulin, Blood 3.8 g/dL (2.2-4.0); Total Protein, Blood 5.9 g/dL (6.4-8.2)
--- NOTE | 2023-01-08 06:47 | NUR ---
PATIENTS SISTER TO ROOM, REQUESTED PATIENTS ASCITES BE DRAINED USING PLEUREX DRAIN. DR. THOMPSON TO ROOM, 3L FLUID DRAINED. BP REMAINS STABLE
[2023-01-08 13:57] LABS: Bilirubin, Direct 14.4 mg/dL (0.0-0.3); Bilirubin, Indirect 2.8 mg/dL (0.1-0.7); Bilirubin, Total 17.2 mg/dL (0.1-1.0)
--- NOTE | 2023-01-08 15:34 | NUR ---
Multiple visits today. Dr Murphy has had a few conversations with Pt and family today after speaking with [facility] multiple times and radiology at [facility]. Pt and family elect hospice services with [facility]. Offered supportive visits. Pt appears weak and lethargic. Pt reports pain is managed with current regimen. Provided 2 PleurX drain kits for Pt to return home with. Pt and family express appreciation and report no new concerns at this time. Spoke with RN Elizabeth Dhaliwal and discussed case. Potential plan for Pt to D/C home tomorrow with [facility]. Palliative Care will remain available
--- NOTE | 2023-01-08 17:31 | NUR ---
SUMMARY PT A/O X4. HAS SOME PAIN IN ABD AT TIMES, MEDICATED WITH OXYCODONE. HAS PLEUREX DRAIN TO RLQ. DID NOT HAVE TO DRAIN THIS SHIFT. PT IS JAUNDICED T/O. PT AND FAMILY DECIDED TODAY THAT THEY WOULD MAKE PT COMFORT CARE. PLAN FOR POSSIBLE HOME ON HOSPICE TOMORROW. PT IS UP IN ROOM WITH MINIMAL ASSIST FROM FAMILY. AMBULATES IN HALLWAY WITH FAMILY. NO SIGN OF DISTRESS. NO ACUTE CHANGES.
[2023-01-09 05:16] VITALS: BP 96/60
--- NOTE | 2023-01-09 06:11 | NUR ---
SHIFT SUMMARY ASSUMED CARE OF PT AT 1900. PT IS A/OX4 BUT PT IS DROWSY. HEART SOUNDS REGULAR. LUNG SOUNDS DIMINISHED. PT WAS A 1P SBA TO BATHROOM. URINE DARK CITLALI. PT SKIN IS JAUNDICED. ABD DISTENDED AND PAINFUL. DRAIN COVERED IN RLQ. NO NEW COMPLAINTS FROM PT.
[2023-01-09 06:35] LABS: Bun/Creatinine Ratio 37.3 (12.0-20.0); Calcium, Blood 9.3 mg/dL (8.5-10.1); Creatinine, Blood 1.26 mg/dL (0.60-1.20); Potassium, Blood 4.9 mmol/L (3.5-5.5)
[2023-01-09 07:56] VITALS: BP 102/65
[2023-01-09 08:44] LABS: Vancomycin, Trough 20.6 ug/mL (5.0-10.0)
[2023-01-09] MEDS ORDERED: FENTANYL1 EA13 TOP (09:34)
[2023-01-09] MEDS ORDERED: LEVFLO500 PO (09:35)
--- NOTE | 2023-01-09 12:03 | NUR ---
PT DISCHARGE TO HOME [facility] TO DO INTAKE TOMORROW. SIGNIFICANT OTHER AT THE BEDSIDE DISCLOSED ALL DISCHARGE INFORMATION WITH BOTH PT AND SIGNIFICANT OTHER, PRESCRITPION SENT TO [facility], HARD SCRIPT FOR FENTANYL PATCH PROVIDED WELL. [facility]. PT HAD A SHOWER PRIOR TO DISCHARGE. ALL BELONGINGS SENT WITH THE PT. ACCOMPANIED VIA WHEELCHAIR FOR TRANSPORT.
== END 2023-01-09 11:30 | disposition home or self-care (01) | DRG 436 ==
LOC: ER 19:10 → ICUW 01-07 01:46 → PCU 01-07 20:30
PROVIDERS: Family Medicine; Internal Medicine; Student in an Organized Health Care Education/Training Program; ADMIT Internal Medicine
DX: C78.7 Secondary malignant neoplasm of liver and intrahepatic bile duct (principal); C18.9 Malignant neoplasm of colon, unspecified; C77.9 Secondary and unspecified malignant neoplasm of lymph node, unspecified; C78.01 Secondary malignant neoplasm of right lung; C78.02 Secondary malignant neoplasm of left lung; N17.9 Acute kidney failure, unspecified; N13.30 Unspecified hydronephrosis; R18.0 Malignant ascites; D84.9 Immunodeficiency, unspecified; Z51.5 Encounter for palliative care; I10 Essential (primary) hypertension; K21.9 Gastro-esophageal reflux disease without esophagitis; F17.210 Nicotine dependence, cigarettes, uncomplicated; I95.9 Hypotension, unspecified; G47.00 Insomnia, unspecified; G43.909 Migraine, unspecified, not intractable, without status migrainosus; L29.8 Other pruritus; Z90.49 Acquired absence of other specified parts of digestive tract; Z98.890 Other specified postprocedural states; Z90.89 Acquired absence of other organs; Z79.899 Other long term (current) drug therapy; Z79.891 Long term (current) use of opiate analgesic; Z91.041 Radiographic dye allergy status; Z98.52 Vasectomy status
CPT/HCPCS: 36415; 74176; 76705; 80048; 80053; 80202; 81001; 82140; 82247; 82248; 82728; 83540; 83550; 83605; 84157; 85025; 85027; 87040; 87070; 87086; 87205; 88108; 88305; 88341; 88342; 89051; 94760; 96365; 96367; 99285-25; A9270; C1769; J1642; J1644; J2543; J3370; J7030; J7050; P9047